=== PATIENT | male | born 1960 | race Caucasian/White ===

== ENCOUNTER → 2018-09-30 | Outpatient (REF) | payer BC ==
[2018-09-30 19:31] LABS: BLOOD UREA NITROGEN 20 MG/DL (7-18); CALCIUM LEVEL 8.5 MG/DL (8.5-10.1); CARBON DIOXIDE LEVEL 30 MEQ/L (21-32); CHLORIDE LEVEL 99 MEQ/L (98-107); CREATININE FOR GFR 0.99 MG/DL (0.70-1.30); GLOMERULAR FILTRATION RATE > 60.0 (>56); GLUCOSE, FASTING 211 MG/DL (70-100); POTASSIUM SERUM 3.6 MEQ/L (3.5-5.1); SODIUM LEVEL 137 MEQ/L (136-145)
== END ==
LOC: M SFHCADAM 16:17
PROVIDERS: ATTEND Family Medicine
DX: E11.65 Type 2 diabetes mellitus with hyperglycemia (principal); I11.9 Hypertensive heart disease without heart failure

== ENCOUNTER → 2019-03-31 | Outpatient (REF) | payer BC ==
[2019-03-31 20:19] LABS: CREATININE, URINE 25.1 MG/DL; MALB URINE SIEMENS < 5.0 MG/L; MAU/CREAT RATIO 19.9 MCG/MG (0.0-30.0)
[2019-03-31 20:21] LABS: HEMOGLOBIN A1c 8.3 %
== END ==
LOC: M SFHCADAM 17:25
PROVIDERS: ATTEND Family Medicine
DX: E11.65 Type 2 diabetes mellitus with hyperglycemia (principal)

== ENCOUNTER 2020-09-29 13:19 | Emergency (ER) | payer BC ==
[~2020-09-29] VITALS: Ht 182.9 cm; Wt 115.8 kg
--- OUTSIDE RECORDS SUMMARY | 2020-09-29 13:25 | CCD ---
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 Role Phone Robbysandrinebam Kristian Unavailable PROBLEMS Type Condition ICD9-CM Code [id number] Code Onset Dates Condition S tatus SNOMED Code Notes Problem Hyperlipidemia, unspecified E78.5 Active 5582 2004 Problem Vitamin D deficiency, unspecified E55.9 Active 71360014 Problem Type 2 diabetes mellitus with hyperglycemia E11.65 Active 299625776137201 Problem Obstructive sleep apnea (adult) (pediatric) G47.33 Active 38626737 Problem Atherosclerotic heart diseas e of [place] coronary artery without angina pectoris I25.10 Active 431104443574992 Problem Major depressive disorder, single episode, unspecified F32.9 Active 05351672 Problem Hypertensive heart disease without heart failure I 11.9 Active 63248411 Problem Generalized anxiety disorder F41.1 Active 218 91819 Problem Encounter for screening for malignant neoplasm of prostate Z12.5 Active 214221858 Problem Primary generalized (osteo)arthritis M15.0 Act leilani 712461769 Problem Gastro-esophageal reflux disease without esophagitis K21.9 Active 021065142 Problem Chronic systolic (congestive) heart failure I50.22 Active 025574028 ALLERGIES Allergen (clinical drug ingredient) Drug/Non Drug Allergy do cumented on EMR Reaction Allergy Type Onset Date Status bee stings Unknown Non Drug Allergy Active ENCOUNTERS from 1960 to 2020-09-25 Encounter Location Date Provider Diagnosis [facility] [place] [address] [place] [id number] 11 Sep, 2020 [place] At increased risk of exposure to COVID-19 virus Z91.89 IMMUNIZATIONS Vaccine Route Administration Date Status Pneumococcal Adult 0.5mL (Pneumovax 23) IM Intramuscular March Administered Influenza (6mo & up) Fluzone IM Intramuscular Sep 24, 2017 Ad ministered Influenza (6mo & up) Fluzone IM Intramuscular Jul 20, 2014 Ad ministered Influenza (6mo & up) Fluzone IM Intramuscular Jul 11, 2010 Ad ministered SOCIAL HISTORY Tobacco Use: Social History Observation Description Date Details (start date - stop date) Never Smoker Sex Assigned At : Social History Observation Description Sex Assigned At Unknown Audit Question Answer Notes Total Score: 2 Interpretation: Alcohol Education Language: Question Answer Notes Languages spoken: German Sexual Hx: Question Answer Notes Had sex in the last 12 months (vaginal, oral, or anal)? No Have you ever had an STD? No Drug and Alcohol Question Answer Notes Total Score: 0 Interpretation: No problems reported Alcohol Screening: Question Answer Notes Did you have a drink containing alcohol in the past year? Ye s Points 1 Interpretation Negative How often did you have six or more drinks on one occas ion in the past year? Never (0 points) How many drinks did you have on a typica l day when you were drinking in the past year? 1 or 2 (0 points) How often did you have a drink containing alcohol in t he past year? Monthly or less (1 point) BMI Care Goal Follow-Up Question Answer Notes Above Normal BMI Follow-Up Lifestyle education regarding t Tobacco Use: Question Answer Notes Are you a: never smoker REASON FOR REFERRAL No Information VITAL SIGNS No information MEDICATIONS Medication SIG (Take, Route, Frequency, Duration) Notes Start Da te End Date Status Loprox 0.77 % 1 application Externally Twice a day for 30 Days Nov, Active Selenium Sulfide 2.25 % 1 application Externally Daily for 7 day(s) Active Vitamin D 5000 UNIT 1 tablet Orally Once a day Aug, 3 Not-Taking CPAP mask as directed CPAP mask, tubin g, reservoir, filters Dx: HIEN for 99 months Dec, Unknown Coreg 12.5 MG TAKE ONE TABLET BY MOUTH TWI CE A DAY Orally Twice a day for 30 days Active EpiPen 0.3 MG/0.3ML (1:1000) as directed Intramuscular as needed for bee stings for 90 days Mar, Active Lipitor 80 MG 1 tablet Orally Once a day for 90 Active Hydrocortisone 2.5 % 1 application to affected ar ea Externally twice daily as needed for 30 day(s) Mar, Active Lantus SoloStar 100 UNIT/ML 100 units Subcutaneous every night Active Pen Reed 31G X 6 MM as directed SQ twice a day for 90 day(s) Nov, Active Pantoprazole Sodium 40 MG TAKE ONE TABLET BY MOUTH EVERY DAY for 30 Active Lancets lancets lancets ICD:250.02 NIDDM FSBS twice daily for 90 day(s) Jul, Active Aspirin 325 MG 1 tablet Orally Once a day Active Remeron 30 mg 1 tab(s) Orally bedtime for 90 Active Mometasone Furoate 0.1 % 1 application Externally Once a day for 30 Days Oct, Active Nitroglycerin 0.4 MG/SPRAY 1 puff under the tongue Tra nslingual chest pain directions for 30 day(s) Active Jardiance 25 mg TAKE ONE TABLET BY MOUTH FERNY RY DAY Orally Once a day for 90 days Active FreeStyle Lite Test `` 1 each In Vitro DX. E11.65 twice a day fo r 90 day(s) January, Active Plavix 75 MG TAKE ONE TABLET BY MOUTH EVERY DAY for 30 Active Alprazolam 0.25 MG 1 tablet Orally Twice a day MDD:2 for 30 Not-Taking Metformin HCl 1000 mg with meals Orally 1& 1/2 in AM//1 in PM for 30 Active Losartan Potassium 50 MG TAKE ONE TABLET BY MOUTH EVERY DAY for 30 Active Ranexa 500 mg 1 tablet Orally Twice a day for 30 Active Multivitamins 1 tablet Orally daily Not-Taking Lantus solo star pen needles _ as directed _ as directed for 30 day(s) Jul, Active Glucose Blood test strips ICD:250.02 NIDDM FSBS twice daily for 90 day(s) Jul, Active Chlorthalidone 25 MG TAKE ONE TABLET BY MOUTH EVERY DAY for 30 Active PROCEDURES No Information RESULTS No Results REASON FOR VISIT COVID MEDICAL (GENERAL) HISTORY Type Description Date Medical History [place] Anterolateral 08/22, STEM I s/p thrombolytic and rescue angioplasty w/out stenting Medical History CAD PTCA/Stent 02/18 (Diagonal branch) Medical History Cath 08/22 ([facility]) LAD 60 %, L circumflex 100% stenosis, prior stent placed in diagnonal is occluded,prior stent placed in mid distal CX is patent RCA 100% stenosis, s/p rescue PTCA diagonal stent thrombosis Medical History type II diabetes with neuropathy Medical History Esophageal reflux Medical History Depression Medical History Echo 11/21 EF = 40 - 45% Medical History Nuclear Stress test 10/24 - i nfarction Ant lat wall, ischemia in antlat and inflat [place] 03/2011 previous [place], no ischemia EF 36%; mNST 12/27: fixed anterolat/anterapical defect, no reversibility, EF 36% Medical History HIEN s/p UPPP on BIPAP Medical History HTN Medical History Hyperlipidemia Medical History Obesity Medical History Ischemic cardiomyopathy Medical History Metabolic Syndrome Medical History Allergic Rhinitis Medical History Vit d defic Surgical History UPPP Surgical History (never had colonoscopy. was scheduled 08/22, had [place] when Plavix was held for procedure, never done). 08/22 Goals Section No Information Health Concerns No Information MEDICAL EQUIPMENT No Information MENTAL STATUS No Information FUNCTIONAL STATUS No Information ASSESSMENTS Encounter Date Diagnosis Assessment Notes Treatment Notes Treatm ent Clinical Notes Sep, At increased risk of exposure to COVID-1 9 virus (ICD-10 - Z91.89) PLAN OF TREATMENT Medication Medication Name Sig Start Date Stop Date Metformin HCl 1000 mg with meals Orally 1& 1/2 in AM//1 in PM fo r 30 Ranexa 500 mg 1 tablet Orally Twice a day for 30 Selenium Sulfide 2.25 % 1 application Externally Daily for 7 day (s) Treatment Notes Test Name Order Date Coronavirus 2019 Nasopharygeal (Send Out) COVID 09-25 Coronavirus 2019 NOSE (Send Out) COVID 2020-09-25 Next Appt Details Provider Name:Kristian Maldonado, 2020-10 03:45:00 PM, [address], [place], [address], Insurance Providers Payer Name Payer Address Payer Phone Insured Name Patient Relati onship to Insured Coverage Start Date Coverage End Date BCBS LORI DOMINGUEZ PPO [phone] [facility] [place] [id number] ERICA GREER self
--- OUTSIDE RECORDS SUMMARY | 2020-09-29 13:26 | CCD ---
Author Author [facility] Organization [facility] Address Unknown Phone Unavailable Care Team Providers Care Supervisor Enrobing Name Role Phone Rachid Winchester MD, FAC Unavailable Unavailable GabRachid ba MD, [facility] Unavailable Unavailable GabRachid ba MD, [facility] Unavailable Unavailable GabrisRachid MD, [facility] Unavailable Unavailable GabRachid ba MD, [facility] Unavailable Unavailable GabRachid ba MD, [facility] Unavailable Unavailable GabRachid ba MD, [facility] Unavailable Unavailable GabRachid ba MD, [facility] Unavailable Unavailable GabRachid ba MD, [facility] Unavailable Unavailable GabRachid ba MD, [facility] Unavailable Unavailable GabRachid ba MD, [facility] Unavailable Unavailable GabrisRachid MD, [facility] Unavailable Unavailable GabRachid ba MD, [facility] Unavailable Unavailable GabRachid ba MD, [facility] Unavailable Unavailable GabRachid ba MD, [facility] Unavailable Unavailable GabRachid ba MD, [facility] Unavailable Unavailable GabrisRachid MD, [facility] Unavailable Unavailable Gabris, Rachid Bruner MD, [facility] Unavailable Unavailable Gabris, Rachid Bruner MD, [facility] Unavailable Unavailable Gabris, Rachid Bruner MD, [facility] Unavailable Unavailable Gabris, Rachid Bruner MD, [facility] Unavailable Unavailable Gabris, Rachid Bruner MD, [facility] Unavailable Unavailable Gabris, Rachid Bruner MD, [facility] Unavailable Unavailable Gabris, Rachid Bruner MD, [facility] Unavailable Unavailable Gabris, Rachid Bruner MD, [facility] Unavailable Unavailable Gabris, Rachid Bruner MD, [facility] Unavailable Unavailable Gabris, Rachid Bruner MD, [facility] Unavailable Unavailable Gabris, Rachid Bruner MD, [facility] Unavailable Unavailable Gabris, Rachid Bruner MD, [facility] Unavailable Unavailable Gabris, Rachid Bruner MD, [facility] Unavailable Unavailable Gabris, Rachid Bruner MD, [facility] Unavailable Unavailable Gabris, Rachid Bruner MD, [facility] Unavailable Unavailable Gabris, Rachid Bruner MD, [facility] Unavailable Unavailable Gabris, Rachid Bruner MD, [facility] Unavailable Unavailable Gabris, Rachid Bruner MD, [facility] Unavailable Unavailable Gabris, Rachid Bruner MD, [facility] Unavailable Unavailable Gabris, Rachid Bruner MD, [facility] Unavailable Unavailable Gabris, Rachid Bruner MD, [facility] Unavailable Unavailable Gabris, Rachid Bruner MD, [facility] Unavailable Unavailable Gabris, Rachid Bruner MD, [facility] Unavailable Unavailable Gabris, Rachid Bruner MD, [facility] Unavailable Unavailable Gabris, Rachid Bruner MD, [facility] Unavailable Unavailable Gabris, Rachid Bruner MD, [facility] Unavailable Unavailable Gabris, Rachid Bruner MD, [facility] Unavailable Unavailable Gabris, Rachid Bruner MD, [facility] Unavailable Unavailable Gabris, Rachid Bruner MD, [facility] Unavailable Unavailable Gabris, Rachid Bruner MD, [facility] Unavailable Unavailable Gabris, Rachid Bruner MD, [facility] Unavailable Unavailable Gabris, Rachid Bruner MD, [facility] Unavailable Unavailable Gabris, Rachid Bruner MD, [facility] Unavailable Unavailable Gabris, Rachid Bruner MD, [facility] Unavailable Unavailable Gabris, Rachid Bruner MD, [facility] Unavailable Unavailable Gabris, Rachid Bruner MD, [facility] Unavailable Unavailable Gabris, Rachid Bruner MD, [facility] Unavailable Unavailable Gabris, Rachid Bruner MD, [facility] Unavailable Unavailable Gabris, Rachid Bruner MD, [facility] Unavailable Unavailable Gabris, Rachid Bruner MD, [facility] Unavailable Unavailable Gabris, Rachid Bruner MD, [facility] Unavailable Unavailable Gabris, Rachid Bruner MD, [facility] Unavailable Unavailable Gabris, Rachid Bruner MD, [facility] Unavailable Unavailable Gabris, Rachid Bruner MD, [facility] Unavailable Unavailable Gabris, Rachid Bruner MD, [facility] Unavailable Unavailable Gabris, Rachid Bruner MD, FACC Unavailable Unavailable Gabris, Rachid Bruner MD, FACC Unavailable Unavailable Gabris, Rachid Bruner MD, FAC Unavailable Unavailable Gabris, Rachid Bruner MD, FAC Unavailable Unavailable Gabris, Rachid Bruner MD, FAC Unavailable Unavailable Rolince, Christina RN Unavailable Unavailable Rolince, Christina RN Unavailable Unavailable Rolince, Christina RN Unavailable Unavailable Rolince Christina RN Unavailable Unavailable Rolince, Christina RN Unavailable Unavailable Rolince, Christina RN Unavailable Unavailable Rolince, Christina RN Unavailable Unavailable Rolince, Christina RN Unavailable Unavailable Rolince, Christina RN Unavailable Unavailable Rolince, Christina RN Unavailable Unavailable Rolince Christina RN Unavailable Unavailable Rolince Christina RN Unavailable Unavailable Rolince Christina RN Unavailable Unavailable Rolince Christina RN Unavailable Unavailable RolinceErmelindaChristina RN Unavailable Unavailable Rolince Christina RN Unavailable Unavailable PaolaeErmelinda RN Unavailable Unavailable WetterKristian kuhn MD Unavailable Unavailable WetterhahnKristian MD Unavailable Unavailable WetterhahnKristian MD Unavailable Unavailable WetterhahnKristian MD Unavailable Unavailable WetterhahnKristian MD Unavailable Unavailable WetterhahnKristian MD Unavailable Unavailable WetterhahnKristian MD Unavailable Unavailable WetterhahnKristian MD Unavailable Unavailable WetterhahnKristian MD Unavailable Unavailable WetterhahnKristian MD Unavailable Unavailable WetterhahnKristian MD Unavailable Unavailable WetterhahnKristian MD Unavailable Unavailable WetterhahnKristian MD Unavailable Unavailable WetterhaKristian arredondo MD Unavailable Unavailable WetterhahnKristian MD Unavailable Unavailable WetterhahnKristian MD Unavailable Unavailable WetterhahnKristian MD Unavailable Unavailable WetterhahnKristian MD Unavailable Unavailable WetterhahnKristian MD Unavailable Unavailable WetterhahnKristian MD Unavailable Unavailable WetterhahnKristian MD Unavailable Unavailable WetterhahnKristian MD Unavailable Unavailable WetterhahnKristian MD Unavailable Unavailable WetterhahnKristian MD Unavailable Unavailable WetterhahnKristian MD Unavailable Unavailable WetterhahnKristian MD Unavailable Unavailable WetterhahnKristian MD Unavailable Unavailable WetterhahnKristian MD Unavailable Unavailable WetterhahnKristian MD Unavailable Unavailable WetterhahnKristian MD Unavailable Unavailable WetterhahnKristian MD Unavailable Unavailable WetterhahnKristian MD Unavailable Unavailable WetterhahnKristian MD Unavailable Unavailable Wetterhahn, Kristian MARADIAGA Unavailable Unavailable Wetterhahn, Kristian MARADIAGA Unavailable Unavailable Wetterhahn, Kristian MARADIAGA Unavailable Unavailable Wetterhahn, Kristian MARADIAGA Unavailable Unavailable Wetterhahn, Kristian MARADIAGA Unavailable Unavailable Wetterhahn, Kristian MD Unavailable Unavailable Wetterhahn, Kristian MD Unavailable Unavailable Wetterhahn, Kristian MD Unavailable Unavailable Wetterhahn, Kristian MARADIAGA Unavailable Unavailable Wetterhahn, Kristian MD Unavailable Unavailable Wetterhahn, Kristian MARADIAGA Unavailable Unavailable Wetterhahn, Kristian MARADIAGA Unavailable Unavailable Wetterhahn, Kristian MD Unavailable Unavailable Wetterhahn, Kristian MD Unavailable Unavailable Wetterhahn, Kristian MD Unavailable Unavailable Wetterhahn, Kristian MD Unavailable Unavailable Wetterhahn, Kristian MD Unavailable Unavailable Wetterhahn, Kristian MARADIAGA Unavailable Unavailable Wetterhahn, Kristian MD Unavailable Unavailable Wetterhahn, Kristian MD Unavailable Unavailable Wetterhahn, Kristian MD Unavailable Unavailable Wetterhahn, Kristian MD Unavailable Unavailable Wetterhahn, Kristian MD Unavailable Unavailable Wetterhahn, Kristian MD Unavailable Unavailable Wetterhahn, Kristian MD Unavailable Unavailable Wetterhahn, Kristian MD Unavailable Unavailable Wetterhahn, Kristian MD Unavailable Unavailable Wetterhahn, Kristian MD Unavailable Unavailable Wetterhahn, Kristian MD Unavailable Unavailable Wetterhahn, Kristian MD Unavailable Unavailable Wetterhahn, Kristian MD Unavailable Unavailable Wetterhahn, Kristian MD Unavailable Unavailable Wetterhahn, Kristian MD Unavailable Unavailable Wetterhahn, Kristian MD Unavailable Unavailable Wetterhahn, Kristian MD Unavailable Unavailable Wetterhahn, Kristian MARADIAGA Unavailable Unavailable Wetterhahn, Kristian MARADIAGA Unavailable Unavailable Wetterhahn, Kristian MARADIAGA Unavailable Unavailable Re-disclosure Warning The records that you are about to access may contain information from federally-assisted alcohol or drug abuse programs. If such information is present, then the following federally mandated warning applies: This information has been disclosed to you from records protected by federal confidentiality rules (42 CFR part 2). The federal rules prohibit you from making any further disclosure of this information unless further disclosure is expressly permitted by the written consent of the person to whom it pertains or as otherwise permitted by 42 CFR part 2. A general authorization for the release of medical or other information is NOT sufficient for this purpose. The Federal rules restrict any use of the information to criminally investigate or prosecute any alcohol or drug abuse patient.The records that you are about to access may contain highly sensitive health information, the redisclosure of which is protected by Article 27-F of the [facility] Public Health law. If you continue you may have access to information: Regarding HIV / AIDS; Provided by facilities licensed or operated by the [facility] Office of Mental Health; or Provided by the [facility] Office for People With Developmental Disabilities. If such information is present, then the following [facility] mandated warning applies: This information has been disclosed to you from confidential records which are protected by state law. State law prohibits you from making any further disclosure of this information without the specific written consent of the person to whom it pertains, or as otherwise permitted by law. Any unauthorized further disclosure in violation of state law may result in a fine or assisted sentence or both. A general authorization for the release of medical or other information is NOT sufficient authorization for further disc losure. Allergies and Adverse Reactions Type Description Substance Reaction Status Data Source(s ) bee stings bee stings bee stings Unknown Active eC1 ([facility]) Encounters Encounter Providers Location Date Indications Data Source(s ) Outpatient Attender: Kristian Okeefe MD 09/25/2020 01:51:00 PM EST covid screening referral symp and exposed [facility] covid screening referral symp and expose d Unknown [address] [facility] [id number] 09/25/2020 12:00:00 AM EST eCW1 ([facility]) TeleMedicine Est. Pt. Level 3 [address] [place] [address] 09/06/2020 12:00:00 AM EST eCW1 ([facility]) Unknown [address] [facility] [address] 08/30/2020 12:00:00 AM EST eCW1 ([facility]) Unknown [address] [facility] [id number] 08/16/2020 12:00:00 AM EST eCW1 ([facility]) Outpatient Attender: Ermelinda Chambers RNAttender: Franc Winchester MD, [facility] [email or web address] 06/30/2020 12:00:00 AM EDT - 06/30/2020 03:49:15 PM EDT [facility] [address] [place] [address] 05/03/2020 12:00:00 AM EDT [facility]CW1 [facility] [place] [address] [address] 04/07/2020 12:00:00 AM EDT eCW1 ([facility]) [place]patient [address] [address] 04/05/2020 12:00:00 AM EDT eCW1 ([facility]) Unknown [address] [facility] [place] [address] 03/27/2020 12:00:00 AM EDT eCW1 ([facility]) Unknown [address], [facility] [address] 02/23/2020 12:00:00 AM EDT eCW1 ([facility]) Outpatient Attender: Franc Winchester MD, [facility] [email or web address] 12/31/2019 12:00:00 AM EDT - 12/31/2019 03:13:18 PM EDT [facility] [address] [facility] [address] 12/15/2019 12:00:00 AM EDT eCW1 ([facility]) [facility] [address] [address] 12/13/2019 12:00:00 AM EDT eCW1 ([facility]) [facility] [place] [address] [address] 11/30/2019 12:00:00 AM EDT eCW1 ([facility]) [facility] [address] [address] 11/25/2019 12:00:00 AM EDT eCW1 ([facility]) [facility] [address] [facility] [address] 11/24/2019 12:00:00 AM EDT eCW1 ([facility]) [facility] D[facility] [address] [place] [address] 10/21/2019 12:00:00 AM EST eCW1 ([facility]) [facility] [address] [facility] [address] 10/21/2019 12:00:00 AM EST eCW1 ([facility]) [facility] [address] [place] [address], [place] [address] 10/20/2019 12:00:00 AM EST eCW1 ([facility]) [facility] [address] [place] [address] [place] [address] 10/20/2019 12:00:00 AM EST eCW1 ([facility]) [facility] [address] [place] [address] [place] [address] 10/05/2019 12:00:00 AM EST eCW1 ([facility]) [facility] [address] [place] [address], [place] [address] 09/13/2019 12:00:00 AM EST eCW1 ([facility]) [facility] [address] [place] [address], [place] [address] 08/23/2019 12:00:00 AM EST eCW1 ([facility]) Medications Medication Brand Name Start Date Product Form Dose Route Admi nistrative Instructions Pharmacy Instructions Status Indications Reaction Description Data Source(s) carvedilol 12.5 MG Oral Tablet CARVEDILOL 08/23/2020 12:00:00 AM EST tablet 60 TAKE ONE TABLET BY MOUTH TWICE A DAY TAKE ONE TABLET BY MOUT H TWICE A DAY SOLD: 08/27/2020 [facility] pantoprazole 40 MG Delayed Release Oral Tablet PANTOPRAZOLE SODIUM 08/16/2020 12:00:00 AM EST tablet,delayed release (DR/EC) 30 T SRINATH ONE TABLET BY MOUTH EVERY DAY TAKE ONE TABLET BY MOUTH EVERY DAY SOLD: 08/18/2020 [facility] 25 mg 08/16/2020 12:00:00 AM EST tablet 30 TAKE ONE TABLET BY MOUTH EVERY DAY TAKE ONE TABLET BY MOUTH EVERY DAY SOLD: 09/21/2020 [facility] pantoprazole 40 MG Delayed Release Oral Tablet PANTOPRAZOLE SODIUM 08/16/2020 12:00:00 AM EST tablet,delayed release (DR/EC) 30 T SRINATH ONE TABLET BY MOUTH EVERY DAY TAKE ONE TABLET BY MOUTH EVERY DAY SOLD: 09/14/2020 [facility] 25 mg 08/16/2020 12:00:00 AM EST tablet 30 TAKE ONE TABLET BY MOUTH EVERY DAY TAKE ONE TABLET BY MOUTH EVERY DAY SOLD: 08/18/2020 [facility] doxycycline hyclate 100 MG Oral Capsule DOXYCYCLINE HYCLATE 07/11/2020 12:00:00 AM EDT capsule 2 TAKE 2 CAPSULES BY MOUTH ONCE TAKE 2 CAPSULES BY MOUTH ONCE SOLD: 07/11/2020 [facility] 400 mcg/spray 06/30/2020 12:00:00 AM EDT spray,non-aerosol 1 2 SPRAY 1 SPRAY UNDER THE TONGUE ONCE EVERY 5 MINUTES FOR 3 DOSES FOR CHEST PAIN SPRAY 1 SPRAY UNDER THE TONGUE ONCE EVERY 5 MINUTES FOR 3 DOSES FOR CHEST PAIN SOLD: 07/06/2020 [facility] 50 mg 06/20/2020 12:00:00 AM EDT tablet 30 TAKE ONE TABLET BY MOUTH EVERY DAY TAKE ONE TABLET BY MOUTH EVERY DAY SOLD: 06/22/2020 [facility] 50 mg 06/20/2020 12:00:00 AM EDT tablet 30 TAKE ONE TABLET BY MOUTH EVERY DAY TAKE ONE TABLET BY MOUTH EVERY DAY SOLD: 08/27/2020 [facility] 50 mg 06/20/2020 12:00:00 AM EDT tablet 30 TAKE ONE TABLET BY MOUTH EVERY DAY TAKE ONE TABLET BY MOUTH EVERY DAY SOLD: 09/21/2020 [facility] 50 mg 06/20/2020 12:00:00 AM EDT tablet 30 TAKE ONE TABLET BY MOUTH EVERY DAY TAKE ONE TABLET BY MOUTH EVERY DAY SOLD: 07/30/2020 [facility] 75 mg 05/24/2020 12:00:00 AM EDT tablet 30 TAKE ONE TABLET BY MOUTH EVERY DAY TAKE ONE TABLET BY MOUTH EVERY DAY SOLD: 09/21/2020 [facility] 75 mg 05/24/2020 12:00:00 AM EDT tablet 30 TAKE ONE TABLET BY MOUTH EVERY DAY TAKE ONE TABLET BY MOUTH EVERY DAY SOLD: 08/18/2020 [facility] 75 mg 05/24/2020 12:00:00 AM EDT tablet 30 TAKE ONE TABLET BY MOUTH EVERY DAY TAKE ONE TABLET BY MOUTH EVERY DAY SOLD: 07/23/2020 [facility] 75 mg 05/24/2020 12:00:00 AM EDT tablet 30 TAKE ONE TABLET BY MOUTH EVERY DAY TAKE ONE TABLET BY MOUTH EVERY DAY SOLD: 06/22/2020 [facility] 75 mg 05/24/2020 12:00:00 AM EDT tablet 30 TAKE ONE TABLET BY MOUTH EVERY DAY TAKE ONE TABLET BY MOUTH EVERY DAY SOLD: 05/26/2020 [facility] Metformin hydrochloride 1000 MG Oral Tablet 1,000 mg METFORM IN HCL 05/19/2020 12:00:00 AM EDT tablet 75 TAKE 1 & 1/2 TAB LETS BY MOUTH EVERY MORNING AND 1 TABLET EVERY EVENING TAKE 1 & 1/2 TABLETS BY MOUTH EVERY MORN ING AND 1 TABLET EVERY EVENING SOLD: 09/21/2020 [facility] Metformin hydrochloride 1000 MG Oral Tablet 1,000 mg METFORM IN HCL 05/19/2020 12:00:00 AM EDT tablet 75 TAKE 1 & 1/2 TAB LETS BY MOUTH EVERY MORNING AND 1 TABLET EVERY EVENING TAKE 1 & 1/2 TABLETS BY MOUTH EVERY MORN ING AND 1 TABLET EVERY EVENING SOLD: 08/18/2020 [facility] Metformin hydrochloride 1000 MG Oral Tablet 1,000 mg METFORM IN HCL 05/19/2020 12:00:00 AM EDT tablet 75 TAKE 1 & 1/2 TAB LETS BY MOUTH EVERY MORNING AND 1 TABLET EVERY EVENING TAKE 1 & 1/2 TABLETS BY MOUTH EVERY MORN ING AND 1 TABLET EVERY EVENING SOLD: 06/22/2020 [facility] Metformin hydrochloride 1000 MG Oral Tablet 1,000 mg METFORM IN HCL 05/19/2020 12:00:00 AM EDT tablet 75 TAKE 1 & 1/2 TAB LETS BY MOUTH EVERY MORNING AND 1 TABLET EVERY EVENING TAKE 1 & 1/2 TABLETS BY MOUTH EVERY MORN ING AND 1 TABLET EVERY EVENING SOLD: 07/23/2020 [facility] Metformin hydrochloride 1000 MG Oral Tablet 1,000 mg METFORM IN HCL 05/19/2020 12:00:00 AM EDT tablet 75 TAKE 1 & 1/2 TAB LETS BY MOUTH EVERY MORNING AND 1 TABLET EVERY EVENING TAKE 1 & 1/2 TABLETS BY MOUTH EVERY MORN ING AND 1 TABLET EVERY EVENING SOLD: 05/23/2020 [facility] 30 mg 05/03/2020 12:00:00 AM EDT tablet 90 TAKE ONE TABLET BY MOUTH AT BEDTIME TAKE ONE TABLET BY MOUTH AT BEDTIME SOLD: 05/04/2020 [facility] 30 mg 05/03/2020 12:00:00 AM EDT tablet 90 TAKE ONE TABLET BY MOUTH AT BEDTIME TAKE ONE TABLET BY MOUTH AT BEDTIME SOLD: 07/30/2020 [facility] 100 unit/mL (3 mL) 04/21/2020 12:00:00 AM EDT insulin pen 45 INJECT 100 UNITS UNDER THE SKIN EVERY NIGHT INJECT 100 UNITS UNDER THE SKIN EVERY NIGHT SOLD: 06/15/2020 [facility] 100 unit/mL (3 mL) 04/21/2020 12:00:00 AM EDT insulin pen 45 INJECT 100 UNITS UNDER THE SKIN EVERY NIGHT INJECT 100 UNITS UNDER THE SKIN EVERY NIGHT SOLD: 08/11/2020 [facility] 100 unit/mL (3 mL) 04/21/2020 12:00:00 AM EDT insulin pen 45 INJECT 100 UNITS UNDER THE SKIN EVERY NIGHT INJECT 100 UNITS UNDER THE SKIN EVERY NIGHT SOLD: 04/21/2020 [facility] Alprazolam 0.25 MG Oral Tablet ALPRAZOLAM 04/07/2020 12:00:00 AM EDT tablet 60 TAKE ONE TABLET BY MOUTH TWICE A DAY MAXIMUM DAILY DOS E = 2 TAKE ONE TABLET BY MOUTH TWICE A DAY MAXIMUM DAILY DOSE = 2 SOLD: 04/11/2020 [facility] 500 mg 04/06/2020 12:00:00 AM EDT tablet extended release 12 hr 60 TAKE ONE TABLET BY MOUTH TWICE A DAY TAKE ONE TABLET BY MOUTH TWICE A DAY SOLD: 06/29/2020 [facility] 500 mg 04/06/2020 12:00:00 AM EDT tablet extended release 12 hr 60 TAKE ONE TABLET BY MOUTH TWICE A DAY TAKE ONE TABLET BY MOUTH TWICE A DAY SOLD: 08/06/2020 [facility] 500 mg 04/06/2020 12:00:00 AM EDT tablet extended release 12 hr 60 TAKE ONE TABLET BY MOUTH TWICE A DAY TAKE ONE TABLET BY MOUTH TWICE A DAY SOLD: 08/31/2020 [facility] 500 mg 04/06/2020 12:00:00 AM EDT tablet extended release 12 hr 60 TAKE ONE TABLET BY MOUTH TWICE A DAY TAKE ONE TABLET BY MOUTH TWICE A DAY SOLD: 04/06/2020 [facility] 500 mg 04/06/2020 12:00:00 AM EDT tablet extended release 12 hr 60 TAKE ONE TABLET BY MOUTH TWICE A DAY TAKE ONE TABLET BY MOUTH TWICE A DAY SOLD: 06/01/2020 [facility] 500 mg 04/06/2020 12:00:00 AM EDT tablet extended release 12 hr 60 TAKE ONE TABLET BY MOUTH TWICE A DAY TAKE ONE TABLET BY MOUTH TWICE A DAY SOLD: 05/04/2020 [facility] 2.25 % 04/05/2020 12:00:00 AM EDT shampoo 180 APPLY TO AFFECTED AREA(S) ONCE DAILY FOR 7 DAYS APPLY TO AFFECTED AREA(S) ONCE DAILY FOR 7 DAYS SOLD: 04/06/2020 [facility] selenium sulfide 22.5 MG/ML Medicated Shampoo Selenium Sulfide 2.25 % Selenium Sulfide 2.25 % 04/05/2020 12:00:00 AM EDT 1.0 {application} active Selenium Sulfide 2.25 % eCW1 ([facility]) selenium sulfide 22.5 MG/ML Medicated Shampoo Selenium Sulfide 2.25 % Selenium Sulfide 2.25 % 04/05/2020 12:00:00 AM EDT 1.0 {application} active Selenium Sulfide 2.25 % eCW1 ([facility]) selenium sulfide 22.5 MG/ML Medicated Shampoo Selenium Sulfide 2.25 % Selenium Sulfide 2.25 % 04/05/2020 12:00:00 AM EDT 1.0 {application} active Selenium Sulfide 2.25 % eCW1 ([facility]) selenium sulfide 22.5 MG/ML Medicated Shampoo Selenium Sulfide 2.25 % Selenium Sulfide 2.25 % 04/05/2020 12:00:00 AM EDT 1.0 {application} active Selenium Sulfide 2.25 % eCW1 ([facility]) 500 mg 03/22/2020 12:00:00 AM EDT capsule 21 TAKE ONE CAPSULE BY MOUTH EVERY 8 HOURS FOR 7 DAYS TAKE ONE CAPSULE BY MOUTH EVERY 8 HOURS FOR 7 DAYS [facility] 500 mg 03/13/2020 12:00:00 AM EDT capsule 21 TAKE ONE CAPSULE BY MOUTH EVERY 8 HOURS TAKE ONE CAPSULE BY MOUTH EVERY 8 HOURS SOLD: 03/14/2020 [facility] Alprazolam 0.25 MG Oral Tablet ALPRAZOLAM 02/24/2020 12:00:00 AM EDT tablet 60 TAKE ONE TABLET BY MOUTH TWICE A DAY MAXIMUM DAILY DOS E = 2 TAKE ONE TABLET BY MOUTH TWICE A DAY MAXIMUM DAILY DOSE = 2 SOLD: 02/24/2020 [facility] carvedilol 12.5 MG Oral Tablet CARVEDILOL 02/23/2020 12:00:00 AM EDT tablet 60 TAKE ONE TABLET BY MOUTH TWICE A DAY TAKE ONE TABLET BY MOUT H TWICE A DAY SOLD: 02/24/2020 [facility] carvedilol 12.5 MG Oral Tablet CARVEDILOL 02/23/2020 12:00:00 AM EDT tablet 60 TAKE ONE TABLET BY MOUTH TWICE A DAY TAKE ONE TABLET BY MOUT H TWICE A DAY SOLD: 04/27/2020 [facility] carvedilol 12.5 MG Oral Tablet CARVEDILOL 02/23/2020 12:00:00 AM EDT tablet 60 TAKE ONE TABLET BY MOUTH TWICE A DAY TAKE ONE TABLET BY MOUT H TWICE A DAY SOLD: 06/29/2020 [facility] carvedilol 12.5 MG Oral Tablet CARVEDILOL 02/23/2020 12:00:00 AM EDT tablet 60 TAKE ONE TABLET BY MOUTH TWICE A DAY TAKE ONE TABLET BY MOUT H TWICE A DAY SOLD: 03/28/2020 [facility] carvedilol 12.5 MG Oral Tablet CARVEDILOL 02/23/2020 12:00:00 AM EDT tablet 60 TAKE ONE TABLET BY MOUTH TWICE A DAY TAKE ONE TABLET BY MOUT H TWICE A DAY SOLD: 06/01/2020 [facility] carvedilol 12.5 MG Oral Tablet CARVEDILOL 02/23/2020 12:00:00 AM EDT tablet 60 TAKE ONE TABLET BY MOUTH TWICE A DAY TAKE ONE TABLET BY MOUT H TWICE A DAY SOLD: 07/30/2020 [facility] 25 mg 02/16/2020 12:00:00 AM EDT tablet 30 TAKE ONE TABLET BY MOUTH EVERY DAY TAKE ONE TABLET BY MOUTH EVERY DAY SOLD: 06/22/2020 [facility] 25 mg 02/16/2020 12:00:00 AM EDT tablet 30 TAKE ONE TABLET BY MOUTH EVERY DAY TAKE ONE TABLET BY MOUTH EVERY DAY SOLD: 04/13/2020 [facility] 25 mg 02/16/2020 12:00:00 AM EDT tablet 30 TAKE ONE TABLET BY MOUTH EVERY DAY TAKE ONE TABLET BY MOUTH EVERY DAY SOLD: 03/09/2020 [facility] pantoprazole 40 MG Delayed Release Oral Tablet PANTOPRAZOLE SODIUM 02/16/2020 12:00:00 AM EDT tablet,delayed release (DR/EC) 30 T SRINATH ONE TABLET BY MOUTH EVERY DAY TAKE ONE TABLET BY MOUTH EVERY DAY SOLD: 07/23/2020 [facility] 25 mg 02/16/2020 12:00:00 AM EDT tablet 30 TAKE ONE TABLET BY MOUTH EVERY DAY TAKE ONE TABLET BY MOUTH EVERY DAY SOLD: 02/17/2020 [facility] pantoprazole 40 MG Delayed Release Oral Tablet PANTOPRAZOLE SODIUM 02/16/2020 12:00:00 AM EDT tablet,delayed release (DR/EC) 30 T SRINATH ONE TABLET BY MOUTH EVERY DAY TAKE ONE TABLET BY MOUTH EVERY DAY SOLD: 03/23/2020 [facility] pantoprazole 40 MG Delayed Release Oral Tablet PANTOPRAZOLE SODIUM 02/16/2020 12:00:00 AM EDT tablet,delayed release (DR/EC) 30 T SRINATH ONE TABLET BY MOUTH EVERY DAY TAKE ONE TABLET BY MOUTH EVERY DAY SOLD: 05/23/2020 [facility] pantoprazole 40 MG Delayed Release Oral Tablet PANTOPRAZOLE SODIUM 02/16/2020 12:00:00 AM EDT tablet,delayed release (DR/EC) 30 T SRINATH ONE TABLET BY MOUTH EVERY DAY TAKE ONE TABLET BY MOUTH EVERY DAY SOLD: 04/21/2020 [facility] 25 mg 02/16/2020 12:00:00 AM EDT tablet 30 TAKE ONE TABLET BY MOUTH EVERY DAY TAKE ONE TABLET BY MOUTH EVERY DAY SOLD: 07/23/2020 [facility] pantoprazole 40 MG Delayed Release Oral Tablet PANTOPRAZOLE SODIUM 02/16/2020 12:00:00 AM EDT tablet,delayed release (DR/EC) 30 T SRINATH ONE TABLET BY MOUTH EVERY DAY TAKE ONE TABLET BY MOUTH EVERY DAY SOLD: 06/15/2020 [facility] 25 mg 02/16/2020 12:00:00 AM EDT tablet 30 TAKE ONE TABLET BY MOUTH EVERY DAY TAKE ONE TABLET BY MOUTH EVERY DAY SOLD: 05/26/2020 [facility] 40 mg 02/16/2020 12:00:00 AM EDT tablet,delayed release (DR/EC) 30 TAKE ONE TABLET BY MOUTH EVERY DAY TAKE ONE TABLET BY MOUTH EVERY DAY SOLD: 02/17/2020 [facility] atorvastatin 80 MG Oral Tablet ATORVASTATIN CALCIUM 02/15/2020 1 2:00:00 AM EDT tablet 90 TAKE ONE TABLET BY MOUTH EVERY D AY TAKE ONE TABLET BY MOUTH EVERY DAY SOLD: 05/23/2020 [facility] atorvastatin 80 MG Oral Tablet ATORVASTATIN CALCIUM 02/15/2020 1 2:00:00 AM EDT tablet 90 TAKE ONE TABLET BY MOUTH EVERY D AY TAKE ONE TABLET BY MOUTH EVERY DAY SOLD: 08/18/2020 [facility] atorvastatin 80 MG Oral Tablet ATORVASTATIN CALCIUM 02/15/2020 1 2:00:00 AM EDT tablet 90 TAKE ONE TABLET BY MOUTH EVERY D AY TAKE ONE TABLET BY MOUTH EVERY DAY SOLD: 02/17/2020 [facility] Alprazolam 0.25 MG Oral Tablet ALPRAZOLAM 01/26/2020 12:00:00 AM EDT tablet 60 TAKE ONE TABLET BY MOUTH TWICE A DAY MAXIMUM DAILY DOS E = 2 TAKE ONE TABLET BY MOUTH TWICE A DAY MAXIMUM DAILY DOSE = 2 SOLD: 01/28/2020 [facility] 25 mg 12/27/2019 12:00:00 AM EDT tablet 90 TAKE ONE TABLET BY MOUTH EVERY DAY TAKE ONE TABLET BY MOUTH EVERY DAY SOLD: 07/06/2020 [facility] 25 mg 12/27/2019 12:00:00 AM EDT tablet 90 TAKE ONE TABLET BY MOUTH EVERY DAY TAKE ONE TABLET BY MOUTH EVERY DAY SOLD: 03/30/2020 [facility] 25 mg 12/27/2019 12:00:00 AM EDT tablet 90 TAKE ONE TABLET BY MOUTH EVERY DAY TAKE ONE TABLET BY MOUTH EVERY DAY SOLD: 01/01/2020 [facility] 50 mg 12/16/2019 12:00:00 AM EDT tablet 30 TAKE ONE TABLET BY MOUTH EVERY DAY TAKE ONE TABLET BY MOUTH EVERY DAY SOLD: 12/17/2019 [facility] Alprazolam 0.25 MG Oral Tablet ALPRAZOLAM 12/16/2019 12:00:00 AM EDT tablet 60 TAKE ONE TABLET BY MOUTH TWICE A DAY MAXIMUM DAILY DOS E = 2 TAKE ONE TABLET BY MOUTH TWICE A DAY MAXIMUM DAILY DOSE = 2 SOLD: 12/17/2019 [facility] 50 mg 12/16/2019 12:00:00 AM EDT tablet 30 TAKE ONE TABLET BY MOUTH EVERY DAY TAKE ONE TABLET BY MOUTH EVERY DAY SOLD: 05/26/2020 [facility] 50 mg 12/16/2019 12:00:00 AM EDT tablet 30 TAKE ONE TABLET BY MOUTH EVERY DAY TAKE ONE TABLET BY MOUTH EVERY DAY SOLD: 02/24/2020 [facility] 50 mg 12/16/2019 12:00:00 AM EDT tablet 30 TAKE ONE TABLET BY MOUTH EVERY DAY TAKE ONE TABLET BY MOUTH EVERY DAY SOLD: 03/30/2020 [facility] 50 mg 12/16/2019 12:00:00 AM EDT tablet 30 TAKE ONE TABLET BY MOUTH EVERY DAY TAKE ONE TABLET BY MOUTH EVERY DAY SOLD: 04/27/2020 [facility] 50 mg 12/16/2019 12:00:00 AM EDT tablet 30 TAKE ONE TABLET BY MOUTH EVERY DAY TAKE ONE TABLET BY MOUTH EVERY DAY SOLD: 01/28/2020 [facility] 0.77 % 12/01/2019 12:00:00 AM EDT cream 30 APPLY TOPICALLY TWICE A DAY APPLY TOPICALLY TWICE A DAY SOLD: 01/28/2020 [facility] 0.77 % 12/01/2019 12:00:00 AM EDT cream 30 APPLY TOPICALLY TWICE A DAY APPLY TOPICALLY TWICE A DAY SOLD: 12/03/2019 [facility] ciclopirox 7.7 MG/ML Topical Cream [Loprox] Loprox 0.77 % Lo prox 0.77 % 11/26/2019 12:00:00 AM EDT 1.0 {application} active Loprox 0.77 % eCW1 ([facility]) ciclopirox 7.7 MG/ML Topical Cream [Loprox] Loprox 0.77 % Lo prox 0.77 % 11/26/2019 12:00:00 AM EDT 1.0 {application} active Loprox 0.77 % eCW1 ([facility]) ciclopirox 7.7 MG/ML Topical Cream [Loprox] Loprox 0.77 % Lo prox 0.77 % 11/26/2019 12:00:00 AM EDT active 1 application eCW1 ([facility]) ciclopirox 7.7 MG/ML Topical Cream [Loprox] Loprox 0.77 % Lo prox 0.77 % 11/26/2019 12:00:00 AM EDT active 1 application eCW1 ([facility]) ciclopirox 7.7 MG/ML Topical Cream [Loprox] Loprox 0.77 % Lo prox 0.77 % 11/26/2019 12:00:00 AM EDT 1.0 {application} active Loprox 0.77 % eCW1 ([facility]) ciclopirox 7.7 MG/ML Topical Cream [Loprox] Loprox 0.77 % Lo prox 0.77 % 11/26/2019 12:00:00 AM EDT 1.0 {application} active Loprox 0.77 % eCW1 ([facility]) ciclopirox 7.7 MG/ML Topical Cream [Loprox] Loprox 0.77 % Lo prox 0.77 % 11/26/2019 12:00:00 AM EDT 1.0 {application} active Loprox 0.77 % eCW1 ([facility]) ciclopirox 7.7 MG/ML Topical Cream [Loprox] Loprox 0.77 % Lo prox 0.77 % 11/26/2019 12:00:00 AM EDT 1.0 {application} active Loprox 0.77 % eCW1 ([facility]) ciclopirox 7.7 MG/ML Topical Cream [Loprox] Loprox 0.77 % Lo prox 0.77 % 11/26/2019 12:00:00 AM EDT 1.0 {application} active Loprox 0.77 % eCW1 ([facility]) ciclopirox 7.7 MG/ML Topical Cream [Loprox] Loprox 0.77 % Lo prox 0.77 % 11/26/2019 12:00:00 AM EDT 1.0 {application} active Loprox 0.77 % eCW1 ([facility]) Alprazolam 0.25 MG Oral Tablet ALPRAZOLAM 11/25/2019 12:00:00 AM EDT tablet 60 TAKE ONE TABLET BY MOUTH TWICE A DAY MAXIMUM DAILY DOS E = 2 TAKE ONE TABLET BY MOUTH TWICE A DAY MAXIMUM DAILY DOSE = 2 SOLD: 11/27/2019 [facility] Metformin hydrochloride 1000 MG Oral Tablet 1,000 mg METFORM IN HCL 11/15/2019 12:00:00 AM EST tablet 75 TAKE 1 & 1/2 TAB LETS IN THE MORNING AND 1 TABLET IN THE EVENING - TAKE WITH MEALS TAKE 1 & 1/2 TABLETS IN THE MORNING AND 1 TABLET IN THE EVENING - TAKE WITH MEALS SOLD: 04/21/2020 [facility] 1,000 mg 11/15/2019 12:00:00 AM EST tablet 75 TAKE 1 & 1/2 TABLETS IN THE MORNING AND 1 TABLET IN THE EVENING - TAKE WITH MEALS TAKE 1 & 1/2 TABLETS IN THE MORNING AND 1 TABLET IN THE EVENING - TAKE WITH MEALS SOLD: 02/17/2020 [facility] 1,000 mg 11/15/2019 12:00:00 AM EST tablet 75 TAKE 1 & 1/2 TABLETS IN THE MORNING AND 1 TABLET IN THE EVENING - TAKE WITH MEALS TAKE 1 & 1/2 TABLETS IN THE MORNING AND 1 TABLET IN THE EVENING - TAKE WITH MEALS SOLD: 01/22/2020 [facility] 1,000 mg 11/15/2019 12:00:00 AM EST tablet 75 TAKE 1 & 1/2 TABLETS IN THE MORNING AND 1 TABLET IN THE EVENING - TAKE WITH MEALS TAKE 1 & 1/2 TABLETS IN THE MORNING AND 1 TABLET IN THE EVENING - TAKE WITH MEALS SOLD: 03/23/2020 [facility] 1,000 mg 11/15/2019 12:00:00 AM EST tablet 75 TAKE 1 & 1/2 TABLETS IN THE MORNING AND 1 TABLET IN THE EVENING - TAKE WITH MEALS TAKE 1 & 1/2 TABLETS IN THE MORNING AND 1 TABLET IN THE EVENING - TAKE WITH MEALS SOLD: 12/20/2019 [facility] 1,000 mg 11/15/2019 12:00:00 AM EST tablet 75 TAKE 1 & 1/2 TABLETS IN THE MORNING AND 1 TABLET IN THE EVENING - TAKE WITH MEALS TAKE 1 & 1/2 TABLETS IN THE MORNING AND 1 TABLET IN THE EVENING - TAKE WITH MEALS SOLD: 11/16/2019 [facility] 100 unit/mL (3 mL) 11/11/2019 12:00:00 AM EST insulin pen 30 INJECT 100 UNITS UNDER THE SKIN EVERY NIGHT INJECT 100 UNITS UNDER THE SKIN EVERY NIGHT SOLD: 12/17/2019 [facility] 100 unit/mL (3 mL) 11/11/2019 12:00:00 AM EST insulin pen 30 INJECT 100 UNITS UNDER THE SKIN EVERY NIGHT INJECT 100 UNITS UNDER THE SKIN EVERY NIGHT SOLD: 11/12/2019 [facility] 100 unit/mL (3 mL) 11/11/2019 12:00:00 AM EST insulin pen 30 INJECT 100 UNITS UNDER THE SKIN EVERY NIGHT INJECT 100 UNITS UNDER THE SKIN EVERY NIGHT SOLD: 02/24/2020 [facility] 100 unit/mL (3 mL) 11/11/2019 12:00:00 AM EST insulin pen 30 INJECT 100 UNITS UNDER THE SKIN EVERY NIGHT INJECT 100 UNITS UNDER THE SKIN EVERY NIGHT SOLD: 02/01/2020 [facility] 75 mg 11/10/2019 12:00:00 AM EST tablet 30 TAKE ONE TABLET BY MOUTH EVERY DAY TAKE ONE TABLET BY MOUTH EVERY DAY SOLD: 01/13/2020 [facility] 75 mg 11/10/2019 12:00:00 AM EST tablet 30 TAKE ONE TABLET BY MOUTH EVERY DAY TAKE ONE TABLET BY MOUTH EVERY DAY SOLD: 02/17/2020 [facility] 75 mg 11/10/2019 12:00:00 AM EST tablet 30 TAKE ONE TABLET BY MOUTH EVERY DAY TAKE ONE TABLET BY MOUTH EVERY DAY SOLD: 04/21/2020 [facility] 75 mg 11/10/2019 12:00:00 AM EST tablet 30 TAKE ONE TABLET BY MOUTH EVERY DAY TAKE ONE TABLET BY MOUTH EVERY DAY SOLD: 12/17/2019 [facility] 75 mg 11/10/2019 12:00:00 AM EST tablet 30 TAKE ONE TABLET BY MOUTH EVERY DAY TAKE ONE TABLET BY MOUTH EVERY DAY SOLD: 11/12/2019 [facility] 75 mg 11/10/2019 12:00:00 AM EST tablet 30 TAKE ONE TABLET BY MOUTH EVERY DAY TAKE ONE TABLET BY MOUTH EVERY DAY SOLD: 03/23/2020 [facility] 400 mcg/spray 11/01/2019 12:00:00 AM EST spray,non-aerosol 1 2 USE 1 SPRAY UNDER THE TONGUE ONCE EVERY 5 MINUTES FOLR 3 DOSES FOR CHEST PAIN USE 1 SPRAY UNDER THE TONGUE ONCE EVERY 5 MINUTES FOLR 3 DOSES FOR CHEST PAIN SOLD: 11/03/2019 [facility] 400 mcg/spray 11/01/2019 12:00:00 AM EST spray,non-aerosol 1 2 USE 1 SPRAY UNDER THE TONGUE ONCE EVERY 5 MINUTES FOLR 3 DOSES FOR CHEST PAIN USE 1 SPRAY UNDER THE TONGUE ONCE EVERY 5 MINUTES FOLR 3 DOSES FOR CHEST PAIN SOLD: 03/09/2020 [facility] Nitroglycerin 0.4 MG/ACTUAT Mucosal [place] 400 mcg/spray NITR OGLYCERIN 11/01/2019 12:00:00 AM EST spray,non-aerosol 12 USE 1 SPRAY U NDER THE TONGUE ONCE EVERY 5 MINUTES FOLR 3 DOSES FOR CHEST PAIN USE 1 SPRAY UNDER THE TONGUE ONCE EVERY 5 MINUTES FOLR 3 DOSES FOR CHEST PAIN SOLD: 05/26/2020 [facility] Alprazolam 0.25 MG Oral Tablet ALPRAZOLAM 10/25/2019 12:00:00 AM EST tablet 60 TAKE ONE TABLET BY MOUTH TWICE A DAY MAXIMUM DAILY DOS E = 2 TAKE ONE TABLET BY MOUTH TWICE A DAY MAXIMUM DAILY DOSE = 2 SOLD: 10/25/2019 [facility] 0.1 % 10/21/2019 12:00:00 AM EST ointment 90 APPLY TO AFFECTED AREA(S) ONCE DAILY APPLY TO AFFECTED AREA(S) ONCE DAILY SOLD: 10/23/2019 [facility] mometasone furoate 0.001 MG/MG Topical Ointment Mometa sone Furoate 0.1 % Mometasone Furoate 0.1 % 10/20/2019 12:00:00 AM EST active 1 application eCW1 ([facility]) mometasone furoate 0.001 MG/MG Topical Ointment Mometa sone Furoate 0.1 % Mometasone Furoate 0.1 % 10/20/2019 12:00:00 AM EST 1.0 {application} active Mometasone Furoate 0.1 % eCW1 (Counts include 234 beds at the [facility]) mometasone furoate 0.001 MG/MG Topical Ointment Mometa sone Furoate 0.1 % Mometasone Furoate 0.1 % 10/20/2019 12:00:00 AM EST 1.0 {application} active Mometasone Furoate 0.1 % eCW1 (Counts include 234 beds at the [facility]) mometasone furoate 0.001 MG/MG Topical Ointment Mometa sone Furoate 0.1 % Mometasone Furoate 0.1 % 10/20/2019 12:00:00 AM EST 1.0 {application} active Mometasone Furoate 0.1 % eCW1 (Counts include 234 beds at the [facility]) mometasone furoate 0.001 MG/MG Topical Ointment Mometa sone Furoate 0.1 % Mometasone Furoate 0.1 % 10/20/2019 12:00:00 AM EST 1.0 {application} active Mometasone Furoate 0.1 % eCW1 (Counts include 234 beds at the [facility]) mometasone furoate 0.001 MG/MG Topical Ointment Mometa sone Furoate 0.1 % Mometasone Furoate 0.1 % 10/20/2019 12:00:00 AM EST 1.0 {application} active Mometasone Furoate 0.1 % eCW1 (Counts include 234 beds at the [facility]) mometasone furoate 0.001 MG/MG Topical Ointment Mometa sone Furoate 0.1 % Mometasone Furoate 0.1 % 10/20/2019 12:00:00 AM EST 1.0 {application} active Mometasone Furoate 0.1 % eCW1 (Counts include 234 beds at the [facility]) mometasone furoate 0.001 MG/MG Topical Ointment Mometa sone Furoate 0.1 % Mometasone Furoate 0.1 % 10/20/2019 12:00:00 AM EST 1.0 {application} active Mometasone Furoate 0.1 % eCW1 (Counts include 234 beds at the [facility]) mometasone furoate 0.001 MG/MG Topical Ointment Mometa sone Furoate 0.1 % Mometasone Furoate 0.1 % 10/20/2019 12:00:00 AM EST 1.0 {application} active Mometasone Furoate 0.1 % eCW1 (Counts include 234 beds at the [facility]) 500 mg 10/06/2019 12:00:00 AM EST tablet extended release 12 hr 60 TAKE ONE TABLET BY MOUTH TWICE A DAY TAKE ONE TABLET BY MOUTH TWICE A DAY SOLD: 11/01/2019 [facility] 500 mg 10/06/2019 12:00:00 AM EST tablet extended release 12 hr 60 TAKE ONE TABLET BY MOUTH TWICE A DAY TAKE ONE TABLET BY MOUTH TWICE A DAY SOLD: 10/07/2019 [facility] 500 mg 10/06/2019 12:00:00 AM EST tablet extended release 12 hr 60 TAKE ONE TABLET BY MOUTH TWICE A DAY TAKE ONE TABLET BY MOUTH TWICE A DAY SOLD: 01/08/2020 [facility] 500 mg 10/06/2019 12:00:00 AM EST tablet extended release 12 hr 60 TAKE ONE TABLET BY MOUTH TWICE A DAY TAKE ONE TABLET BY MOUTH TWICE A DAY SOLD: 03/09/2020 [facility] 500 mg 10/06/2019 12:00:00 AM EST tablet extended release 12 hr 60 TAKE ONE TABLET BY MOUTH TWICE A DAY TAKE ONE TABLET BY MOUTH TWICE A DAY SOLD: 11/30/2019 [facility] 500 mg 10/06/2019 12:00:00 AM EST tablet extended release 12 hr 60 TAKE ONE TABLET BY MOUTH TWICE A DAY TAKE ONE TABLET BY MOUTH TWICE A DAY SOLD: 02/01/2020 [facility] Alprazolam 0.25 MG Oral Tablet ALPRAZOLAM 09/24/2019 12:00:00 AM EST tablet 60 TAKE ONE TABLET BY MOUTH TWICE A DAY MAXIMUM DAILY DOS E = 2 TAKE ONE TABLET BY MOUTH TWICE A DAY MAXIMUM DAILY DOSE = 2 SOLD: 09/26/2019 [facility] 25 mg 09/14/2019 12:00:00 AM EST tablet 90 TAKE ONE TABLET BY MOUTH EVERY DAY TAKE ONE TABLET BY MOUTH EVERY DAY SOLD: 09/14/2019 [facility] Alprazolam 0.25 MG Oral Tablet ALPRAZOLAM 08/26/2019 12:00:00 AM EST tablet 60 TAKE ONE TABLET BY MOUTH TWICE A DAY MAXIMUM DAILY DOS E = 2 TAKE ONE TABLET BY MOUTH TWICE A DAY MAXIMUM DAILY DOSE = 2 SOLD: 08/26/2019 [facility] 40 mg 08/10/2019 12:00:00 AM EST tablet,delayed release (DR/EC) 30 TAKE ONE TABLET BY MOUTH EVERY DAY TAKE ONE TABLET BY MOUTH EVERY DAY SOLD: 10/12/2019 [facility] 40 mg 08/10/2019 12:00:00 AM EST tablet,delayed release (DR/EC) 30 TAKE ONE TABLET BY MOUTH EVERY DAY TAKE ONE TABLET BY MOUTH EVERY DAY SOLD: 12/17/2019 [facility] 40 mg 08/10/2019 12:00:00 AM EST tablet,delayed release (DR/EC) 30 TAKE ONE TABLET BY MOUTH EVERY DAY TAKE ONE TABLET BY MOUTH EVERY DAY SOLD: 01/13/2020 [facility] 40 mg 08/10/2019 12:00:00 AM EST tablet,delayed release (DR/EC) 30 TAKE ONE TABLET BY MOUTH EVERY DAY TAKE ONE TABLET BY MOUTH EVERY DAY SOLD: 11/16/2019 [facility] 40 mg 08/10/2019 12:00:00 AM EST tablet,delayed release (DR/EC) 30 TAKE ONE TABLET BY MOUTH EVERY DAY TAKE ONE TABLET BY MOUTH EVERY DAY SOLD: 09/14/2019 [facility] 40 mg 08/10/2019 12:00:00 AM EST tablet,delayed release (DR/EC) 30 TAKE ONE TABLET BY MOUTH EVERY DAY TAKE ONE TABLET BY MOUTH EVERY DAY SOLD: 08/10/2019 [facility] 25 mg 08/03/2019 12:00:00 AM EST tablet 30 TAKE ONE TABLET BY MOUTH EVERY DAY TAKE ONE TABLET BY MOUTH EVERY DAY SOLD: 11/12/2019 [facility] 25 mg 08/03/2019 12:00:00 AM EST tablet 30 TAKE ONE TABLET BY MOUTH EVERY DAY TAKE ONE TABLET BY MOUTH EVERY DAY SOLD: 01/13/2020 [facility] 25 mg 08/03/2019 12:00:00 AM EST tablet 30 TAKE ONE TABLET BY MOUTH EVERY DAY TAKE ONE TABLET BY MOUTH EVERY DAY SOLD: 09/11/2019 [facility] 25 mg 08/03/2019 12:00:00 AM EST tablet 30 TAKE ONE TABLET BY MOUTH EVERY DAY TAKE ONE TABLET BY MOUTH EVERY DAY SOLD: 12/13/2019 [facility] 25 mg 08/03/2019 12:00:00 AM EST tablet 30 TAKE ONE TABLET BY MOUTH EVERY DAY TAKE ONE TABLET BY MOUTH EVERY DAY SOLD: 10/07/2019 [facility] 25 mg 08/03/2019 12:00:00 AM EST tablet 30 TAKE ONE TABLET BY MOUTH EVERY DAY TAKE ONE TABLET BY MOUTH EVERY DAY SOLD: 08/07/2019 [facility] BLOOD SUGAR DIAGNOSTIC 07/24/2019 12:00:00 AM EST strip 200 USE DIRECTED - TWO TIMES A DAY USE DIRECTED - TWO TIMES A DAY SOLD: 05/26/2020 [facility] Losartan Potassium 50 MG Oral Tablet LOSARTAN POTASSIUM 10/2018 12:00:00 AM EDT tablet 30 TAKE ONE TABLET BY MOUTH FERNY RY DAY TAKE ONE TABLET BY MOUTH EVERY DAY SOLD: 10/23/2019 [facility] Losartan Potassium 50 MG Oral Tablet LOSARTAN POTASSIUM 10/2018 12:00:00 AM EDT tablet 30 TAKE ONE TABLET BY MOUTH FERNY RY DAY TAKE ONE TABLET BY MOUTH EVERY DAY SOLD: 09/26/2019 [facility] Losartan Potassium 50 MG Oral Tablet LOSARTAN POTASSIUM 10/2018 12:00:00 AM EDT tablet 30 TAKE ONE TABLET BY MOUTH FERNY RY DAY TAKE ONE TABLET BY MOUTH EVERY DAY SOLD: 08/26/2019 [facility] 50 mg 06/16/2019 12:00:00 AM EDT tablet 30 TAKE ONE TABLET BY MOUTH EVERY DAY TAKE ONE TABLET BY MOUTH EVERY DAY SOLD: 11/27/2019 [facility] 30 mg 06/09/2019 12:00:00 AM EDT tablet 30 TAKE ONE TABLET BY MOUTH AT BEDTIME TAKE ONE TABLET BY MOUTH AT BEDTIME SOLD: 01/08/2020 [facility] 30 mg 06/09/2019 12:00:00 AM EDT tablet 30 TAKE ONE TABLET BY MOUTH AT BEDTIME TAKE ONE TABLET BY MOUTH AT BEDTIME SOLD: 03/28/2020 [facility] 30 mg 06/09/2019 12:00:00 AM EDT tablet 30 TAKE ONE TABLET BY MOUTH AT BEDTIME TAKE ONE TABLET BY MOUTH AT BEDTIME SOLD: 02/01/2020 [facility] 30 mg 06/09/2019 12:00:00 AM EDT tablet 30 TAKE ONE TABLET BY MOUTH AT BEDTIME TAKE ONE TABLET BY MOUTH AT BEDTIME SOLD: 08/10/2019 [facility] 30 mg 06/09/2019 12:00:00 AM EDT tablet 30 TAKE ONE TABLET BY MOUTH AT BEDTIME TAKE ONE TABLET BY MOUTH AT BEDTIME SOLD: 11/01/2019 [facility] 30 mg 06/09/2019 12:00:00 AM EDT tablet 30 TAKE ONE TABLET BY MOUTH AT BEDTIME TAKE ONE TABLET BY MOUTH AT BEDTIME SOLD: 11/30/2019 [facility] 30 mg 06/09/2019 12:00:00 AM EDT tablet 30 TAKE ONE TABLET BY MOUTH AT BEDTIME TAKE ONE TABLET BY MOUTH AT BEDTIME SOLD: 09/11/2019 [facility] 30 mg 06/09/2019 12:00:00 AM EDT tablet 30 TAKE ONE TABLET BY MOUTH AT BEDTIME TAKE ONE TABLET BY MOUTH AT BEDTIME SOLD: 03/05/2020 [facility] 30 mg 06/09/2019 12:00:00 AM EDT tablet 30 TAKE ONE TABLET BY MOUTH AT BEDTIME TAKE ONE TABLET BY MOUTH AT BEDTIME SOLD: 10/07/2019 [facility] 400 mcg/spray 06/02/2019 12:00:00 AM EDT spray,non-aerosol 1 2 USE 1 SPRAY UNDER THE TONGUE ONCE EVERY 5 MINUTES FOLR 3 DOSES FOR CHEST PAIN USE 1 SPRAY UNDER THE TONGUE ONCE EVERY 5 MINUTES FOLR 3 DOSES FOR CHEST PAIN SOLD: 08/19/2019 [facility] 1,000 mg 05/25/2019 12:00:00 AM EDT tablet 75 TAKE 1 & 1/2 TABLETS BY MOUTH EVERY MORNING AND TAKE 1 TABLET BY MOUTH IN THE EVENING WITH MEALS TAKE 1 & 1/2 TABLETS BY MOUTH EVERY MORNING AND TAKE 1 TABLET BY MOUTH IN THE EVENING WITH MEALS SOLD: 10/23/2019 [facility] 1,000 mg 05/25/2019 12:00:00 AM EDT tablet 75 TAKE 1 & 1/2 TABLETS BY MOUTH EVERY MORNING AND TAKE 1 TABLET BY MOUTH IN THE EVENING WITH MEALS TAKE 1 & 1/2 TABLETS BY MOUTH EVERY MORNING AND TAKE 1 TABLET BY MOUTH IN THE EVENING WITH MEALS SOLD: 08/19/2019 [facility] 1,000 mg 05/25/2019 12:00:00 AM EDT tablet 75 TAKE 1 & 1/2 TABLETS BY MOUTH EVERY MORNING AND TAKE 1 TABLET BY MOUTH IN THE EVENING WITH MEALS TAKE 1 & 1/2 TABLETS BY MOUTH EVERY MORNING AND TAKE 1 TABLET BY MOUTH IN THE EVENING WITH MEALS SOLD: 09/14/2019 [facility] 75 mg 05/11/2019 12:00:00 AM EDT tablet 30 TAKE ONE TABLET BY MOUTH EVERY DAY TAKE ONE TABLET BY MOUTH EVERY DAY SOLD: 08/07/2019 [facility] 75 mg 05/11/2019 12:00:00 AM EDT tablet 30 TAKE ONE TABLET BY MOUTH EVERY DAY TAKE ONE TABLET BY MOUTH EVERY DAY SOLD: 09/11/2019 [facility] 75 mg 05/11/2019 12:00:00 AM EDT tablet 30 TAKE ONE TABLET BY MOUTH EVERY DAY TAKE ONE TABLET BY MOUTH EVERY DAY SOLD: 10/12/2019 [facility] carvedilol 12.5 MG Oral Tablet CARVEDILOL 05/05/2019 12:00:00 AM EDT tablet 60 TAKE ONE TABLET BY MOUTH TWICE A DAY TAKE ONE TABLET BY MOUT H TWICE A DAY SOLD: 10/12/2019 [facility] carvedilol 12.5 MG Oral Tablet CARVEDILOL 05/05/2019 12:00:00 AM EDT tablet 60 TAKE ONE TABLET BY MOUTH TWICE A DAY TAKE ONE TABLET BY MOUT H TWICE A DAY SOLD: 08/10/2019 [facility] carvedilol 12.5 MG Oral Tablet CARVEDILOL 05/05/2019 12:00:00 AM EDT tablet 60 TAKE ONE TABLET BY MOUTH TWICE A DAY TAKE ONE TABLET BY MOUT H TWICE A DAY SOLD: 09/14/2019 [facility] carvedilol 12.5 MG Oral Tablet CARVEDILOL 04/13/2019 12:00:00 AM EDT tablet 60 TAKE ONE TABLET BY MOUTH TWICE A DAY TAKE ONE TABLET BY MOUT H TWICE A DAY SOLD: 01/01/2020 [facility] carvedilol 12.5 MG Oral Tablet CARVEDILOL 04/13/2019 12:00:00 AM EDT tablet 16 TAKE ONE TABLET BY MOUTH TWICE A DAY TAKE ONE TABLET BY MOUT H TWICE A DAY SOLD: 11/01/2019 [facility] carvedilol 12.5 MG Oral Tablet CARVEDILOL 04/13/2019 12:00:00 AM EDT tablet 60 TAKE ONE TABLET BY MOUTH TWICE A DAY TAKE ONE TABLET BY MOUT H TWICE A DAY SOLD: 11/03/2019 [facility] carvedilol 12.5 MG Oral Tablet CARVEDILOL 04/13/2019 12:00:00 AM EDT tablet 60 TAKE ONE TABLET BY MOUTH TWICE A DAY TAKE ONE TABLET BY MOUT H TWICE A DAY SOLD: 11/30/2019 [facility] carvedilol 12.5 MG Oral Tablet CARVEDILOL 04/13/2019 12:00:00 AM EDT tablet 60 TAKE ONE TABLET BY MOUTH TWICE A DAY TAKE ONE TABLET BY MOUT H TWICE A DAY SOLD: 02/01/2020 [facility] carvedilol 12.5 MG Oral Tablet CARVEDILOL 04/13/2019 12:00:00 AM EDT tablet 16 TAKE ONE TABLET BY MOUTH TWICE A DAY TAKE ONE TABLET BY MOUT H TWICE A DAY SOLD: 10/25/2019 [facility] 500 mg 03/25/2019 12:00:00 AM EDT tablet extended release 12 hr 60 TAKE ONE TABLET BY MOUTH TWICE A DAY TAKE ONE TABLET BY MOUTH TWICE A DAY SOLD: 09/05/2019 [facility] 500 mg 03/25/2019 12:00:00 AM EDT tablet extended release 12 hr 60 TAKE ONE TABLET BY MOUTH TWICE A DAY TAKE ONE TABLET BY MOUTH TWICE A DAY SOLD: 08/07/2019 [facility] 100 unit/mL (3 mL) 03/24/2019 12:00:00 AM EDT insulin pen 30 INJECT 100 UNITS SUBCUTANEOUSLY EVERY NIGHT INJECT 100 UNITS SUBCUTANEOUSLY EVERY NIGHT SOLD: 10/07/2019 [facility] 100 unit/mL (3 mL) 03/24/2019 12:00:00 AM EDT insulin pen 30 INJECT 100 UNITS SUBCUTANEOUSLY EVERY NIGHT INJECT 100 UNITS SUBCUTANEOUSLY EVERY NIGHT SOLD: 08/26/2019 [facility] 80 mg 01/29/2019 12:00:00 AM EDT tablet 30 TAKE ONE TABLET BY MOUTH EVERY DAY TAKE ONE TABLET BY MOUTH EVERY DAY SOLD: 10/07/2019 [facility] 80 mg 01/29/2019 12:00:00 AM EDT tablet 30 TAKE ONE TABLET BY MOUTH EVERY DAY TAKE ONE TABLET BY MOUTH EVERY DAY SOLD: 11/01/2019 [facility] 80 mg 01/29/2019 12:00:00 AM EDT tablet 30 TAKE ONE TABLET BY MOUTH EVERY DAY TAKE ONE TABLET BY MOUTH EVERY DAY SOLD: 01/13/2020 [facility] 80 mg 01/29/2019 12:00:00 AM EDT tablet 30 TAKE ONE TABLET BY MOUTH EVERY DAY TAKE ONE TABLET BY MOUTH EVERY DAY SOLD: 09/11/2019 [facility] 80 mg 01/29/2019 12:00:00 AM EDT tablet 30 TAKE ONE TABLET BY MOUTH EVERY DAY TAKE ONE TABLET BY MOUTH EVERY DAY SOLD: 12/13/2019 [facility] 80 mg 01/29/2019 12:00:00 AM EDT tablet 30 TAKE ONE TABLET BY MOUTH EVERY DAY TAKE ONE TABLET BY MOUTH EVERY DAY SOLD: 08/07/2019 [facility] Insurance Providers Payer name Policy type / Coverage type Policy ID Covered constitution party ID Covered constitution party's relationship to antunez Policy Antunez Plan Information [employer] [place] PPO [id number] SP [id number] SELF [id number] BLUE CROSS [id number] [facility] [id number] [employer] [id number] Adelina YNE [id number] ANSI-Commercial [id number] ANSI-Commercial [id number] ANSI-Commercial [id number] [employer] [id number] Blue [employer]/Shield [id number] ID IDENTIFICATION [id number] Other In surance [id number] [employer] [id number] [employer] [id number] ANSI-Commercial [id number] ANSI-Commercial [id number] ANSI-Commercial [id number] ANSI-Commercial [id number] [employer] PI PI ANSI-Commercial [id number] ANSI-Commercial [id number] ANSI-Commercial [id number] ANSI-Commercial [id number] ANSI-Commercial [id number] ANSI-Commercial [id number] [employer] [place] PPO 302/307 [id number] SP [id number] ANSI-Commercial [id number] ANSI-Commercial [id number] ANSI-Commercial [id number] ANSI-Commercial [id number] ANSI-Commercial [id number] ANSI-Commercial [id number] ANSI-Commercial [id number] NO FAULT [id number] Adelina [id number] NO FAULT [id number] Adelina [id number] NO FAULT PI PI [employer] [id number] [employer]/Shield [id number] ID IDENTIFICATION [id number] Other In surance [id number] Problems, Conditions, and Diagnoses Code Display Name Description Problem Type Effective Dates Data Source(s) G47.30 Sleep apnea, unspecified Sleep apnea, unspecified Diag nosis 06/30/2020 02:55:39 PM EDT [facility] E11.51 Type 2 diabetes mellitus wit h diabetic peripheral angiopathy without gangrene Type 2 diabetes mellitus with diabetic p Diagnosis 06/30/2020 02:55:39 PM EDT [facility] Z68.41 Body mass index (BMI) 40.0-44.9, adult B casey mass index (BMI)40.0-44.9, adult Diagnosis 06/30/2020 02:55:39 PM EDT [facility] E66.01 Morbid (severe) obesity due to excess ca lories Morbid (severe) obesity due to excess ca Diagnosis 06/30/2020 02:55:39 PM EDT [facility] I10 Essential (primary) hypertension Essential (primary) h ypertension Diagnosis 06/30/2020 02:55:39 PM EDT [facility] 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 pectoris Atherosclerotic heart disease of [place] Diagnosis 06/30/2020 02:55:39 PM EDT [facility] R07.9 Chest pain, unspecified Chest pain, unspecified Diagno sis 06/30/2020 02:55:39 PM EDT [facility] E78.5 Hyperlipidemia, unspecified Hyperlipidemia, unspecifie d Diagnosis 06/30/2020 02:55:39 PM EDT [facility] Results ID Date Data Source [id number] 09/28/2020 10:28:00 AM EST [facility] Patient presents as: Symptomatic COVID Reason PCP CTY Surgery/Appointment Date: na Support person(if yes for who): N Name Value Range Interpretation Code Description Data Jeanine rce(s) Supporting Document(s) COVID 19 Detected Not Detected A [facility] This nucleic acid amplification test wa s developed and its performance characteristics determined by [employer]. Nucleic acid amplification tests include PCR and TMA. This test has not been FDA cleared or approved. This test has been authorized by FDA under an Emergency Use Authorization (EUA). This test is only authorized for the duration of time the declaration that circumstances exist justifying the authorization of the emergency use of in vitro diagnostic tests for detection of SARS-CoV-2 virus and/or diagnosis of COVID-19 infection under section 564(b)(1) of the Act, 21 U.S.C. 360bbb-3(b) (1), unless the authorization is terminated or revoked sooner. When diagnostic testing is negative, the possibility of a false negative result should be considered in the context of a patient's recent exposures and the presence of clinical signs and symptoms consistent with COVID-19. An individual without symptoms of COVID-19 and who is not shedding SARS-CoV-2 virus would expect to have a negative (not detected) result in this assay. Performed at: [facility] [id number] Implant Coordinator: Sabra Morocho MD, Phone: [phone] Faxed result to office and JOVAN. Released result. Please call laboratory with further questions. ID Date Data Source [id number] 07/26/2020 02:38:01 PM EST [facility] Name Value Range Interpretation Code Description Data Jeanine rce(s) Supporting Document(s) WBC 9.5 10*3/uL (4.1-11.0) [facility] RBC 4.71 10*6/uL (4.60-6.10) [facility] HGB 14.7 g/dL (13.5-18.0) [facility] HCT 42.3 % (41.0-53.0) [facility] MCV 89.7 fL (80.0-95.0) [facility] MCH 31.2 pg (27.0-32.0) [facility] MCHC 34.8 g/dL (32.0-36.0) [facility] RDW 12.9 % (10.5-14.5) [facility] PLT 196 10*3/uL (150-450) [facility] MPV 9.0 fL (7.1-10.7) [facility] [place] [facility] ID Date Data Source [id number] 07/26/2020 03:27:56 PM EST [facility] Name Value Range Interpretation Code Description Data Jeanine rce(s) Supporting Document(s) HEMOGLOBIN A1C @ 8.2 % (4.0-6.0) H [facility] [place] [facility] Performed using Siemens [place] immunoassa y.Care must be taken when interpreting [id number] in patients with a hemoglobin variantor decreased erythrocyte lifespan. Values 5.7 - 6.4% suggest prediabetes.Values >=6.5% are diagnostic for diabetes.REFERENCE: DIABETES CARE 2018: 41(S13-S27). EST AVERAGE GLUCOSE 189 mg/dL Laboratory [place] [facility] ID Date Data Source [id number] 07/26/2020 03:35:58 PM EST [facility] [place] [facility] Name Value Range Interpretation Code Description Data Jeanine rce(s) Supporting Document(s) SODIUM 139 mmol/L (136-145) [facility] [place] [facility] - CORE POTASSIUM 3.5 mmol/L (3.6-5.2) L [facility] [place] of [facility] - CORE CHLORIDE 103 mmol/L (100-108) [facility] [place] [facility] - CORE CO2 29 mmol/L (22-31) [facility] [place] [facility] - CORE ANION GAP 7 mmol/L (7-16) [facility] [place] of [facility] - CORE UREA NITROGEN 15 mg/dL (7-24) [facility] - CORE CREATININE 0.92 mg/dL (0.80-1.30) [facility] - CORE BUN/CREAT RATIO 16.3 RATIO (10.0-20.0) [facility] [place] of [facility] - CORE GLUCOSE 110 mg/dL (70-99) H [facility] [place] of [facility] - CORE CALCIUM 8.6 mg/dL (8.4-10.2) [facility] [place] of [facility] - CORE TOTAL PROTEIN 6.8 g/dL (6.4-8.2) [facility] - CORE ALBUMIN 3.8 g/dL (3.5-4.6) Laboratory [place] of [facility] - CORE GLOBULIN 3.0 g/dL (2.7-4.3) [facility] [place] [facility] ALB/GLOB RATIO 1.3 RATIO Laboratory [facility] ALKALINE PHOSPHATASE 62 U/L (45-117) Laborator [facility] [place] [facility] BILIRUBIN,TOTAL 0.5 mg/dL (0.0-1.0) [facility] PLEASE NOTE:Total bilirubin results may be falselyelevated in patients taking Eltrombopag. AST (SGOT) 20 U/L (11-39) [facility] [place] [facility] ALT (SGPT) 46 U/L (12-78) [facility] [place] [facility] [facility] GFR >60 ml/min/1.73m2 (>59) [facility] GFR ( AMER) >60 ml/min/1.73m2 (>59) [facility] [place] [facility] GFR INTERPRETATION [facility] [place] [facility] --NORMAL KIDNEY FUNCTION OR MILD DISEASE - GFR >OR= 60CHRONIC KIDNEY DISEASE - GFR 15 - 59RENAL FAILURE - GFR <15 Est. GFR calculation based on the MDRDstudy equation, which assumes a steadystate for creatinine. Est. GFR should notbe used for medication dosing. ID Date Data Source [id number] 07/26/2020 03:35:58 PM EST [facility] Name Value Range Interpretation Code Description Data Jeanine rce(s) Supporting Document(s) CHOLESTEROL @ 107 mg/dL (0-200) [facility] [place] [place] TRIGLYCERIDE @ 104 mg/dL (30-200) [facility] [place] [place] FASTING HDL CHOLESTEROL @ 35 mg/dL (>40) L [facility] PER NCEP ATP III GUIDELINES:RESULTS LOWE R THAN 40 MG/DL ARE SUGGESTIVEOF INCREASED RISK FOR CORONARY ARTERYDISEASE. RESULTS > OR = TO 60 MG/DL ARECONSIDERED A NEGATIVE RISK FACTOR. CHOL/HDL RATIO 3.1 RATIO Laboratory [facility] [place] C[facility] INTERPRETATION OF CHOL-HDL RATIO CHD RISK FEMALE MALEVERY HIGH >8.3 >14.3HIGH 5.6- 8.3 6.7- 14.3AVERAGE 3.7- 5.6 4.0- 6.7BELOW AVERAGE 2.5- 3.7 2.7- 4.0PROTECTED <2.5 <2.7 LDL CHOL (CALC) 51 mg/dL (<130) [facility] [place] CORE PER NCEP ATP III GUIDELINES: OPTIMAL < 100 NEAR OPTIMAL 100 - 129BORDERLINE HIGH 130 - 159 HIGH 160 - 189 VERY HIGH > 189 ID Date Data Source [id number] 03/31/2020 11:04:32 AM EDT [facility] [employer] - CORE Name Value Range Interpretation Code Description Data Jeanine rce(s) Supporting Document(s) SODIUM 140 mmol/L (136-145) [facility] [place] [facility] [place] C[facility] POTASSIUM 3.7 mmol/L (3.6-5.2) [facility] [place] [facility] [place] CORE CHLORIDE 103 mmol/L (100-108) [facility] [place] of [employer] - CORE CO2 29 mmol/L (22-31) [facility] [place] [facility] [employer] - CORE ANION GAP 8 mmol/L (7-16) [facility] [place] [facility] [employer] - CORE UREA NITROGEN 18 mg/dL (7-24) [facility] [employer] - CORE CREATININE 0.86 mg/dL (0.80-1.30) [facility] [employer] - CORE BUN/CREAT RATIO 20.9 RATIO (10.0-20.0) H [facility] [place] [facility] [place] CORE GLUCOSE 131 mg/dL (70-99) H Laboratory [place] of [employer] - CORE CALCIUM 8.7 mg/dL (8.4-10.2) Laboratory [place] of [employer] - CORE GFR >60 ml/min/1.73m2 (>59) [facility] - CORE GFR ( AMER) >60 ml/min/1.73m2 (>59) Laboratory [place] [facility] [place] C[facility] GFR INTERPRETATION [facility] [place] [facility] [place] CORE --NORMAL KIDNEY FUNCTION OR MILD DISEASE - GFR >OR= 60CHRONIC KIDNEY DISEASE - GFR 15 - 59RENAL FAILURE - GFR <15 Est. GFR calculation based on the MDRDstudy equation, which assumes a steadystate for creatinine. Est. GFR should notbe used for medication dosing. ID Date Data Source [id number] 03/31/2020 11:23:21 AM EDT [facility] Name Value Range Interpretation Code Description Data Jeanine rce(s) Supporting Document(s) ALBUMIN, URINE 0.60 mg/dL [facility] CREATININE,URINE 34.30 mg/dL [facility] AL[facility]/CREATININE RATIO 17.5 ug/mg (0.0-29.9) [facility] ID Date Data Source [id number] 03/31/2020 11:37:39 AM EDT [facility] [place] Name Value Range Interpretation Code Description Data Jeanine rce(s) Supporting Document(s) HEMOGLOBIN A1C @ 7.7 % (4.0-6.0) H [facility] Performed using Siemens [place] immunoassa y.Care must be taken when interpreting [id number] in patients with a hemoglobin variantor decreased erythrocyte lifespan. Values 5.7 - 6.4% suggest prediabetes.Values >=6.5% are diagnostic for diabetes.REFERENCE: DIABETES CARE 2018: 41(S13-S27). EST AVERAGE GLUCOSE 174 mg/dL Laboratory [facility] ID Date Data Source [id number] 10/13/2019 10:00:45 AM EST [facility] Name Value Range Interpretation Code Description Data Jeanine rce(s) Supporting Document(s) WBC 11.1 10*3/uL (4.1-11.0) H [facility] RBC 4.74 10*6/uL (4.60-6.10) [facility] HGB 14.5 g/dL (13.5-18.0) [facility] HCT 42.2 % (41.0-53.0) [facility] MCV 89.1 fL (80.0-95.0) [facility] MCH 30.6 pg (27.0-32.0) [facility] MCHC 34.4 g/dL (32.0-36.0) [facility] RDW 13.0 % (10.5-14.5) [facility] PLT 205 10*3/uL (150-450) [facility] MPV 8.8 fL (7.1-10.7) [facility] [place] [facility] ID Date Data Source [id number] 10/13/2019 10:27:44 AM EST [facility] Name Value Range Interpretation Code Description Data Jeanine rce(s) Supporting Document(s) SODIUM 142 mmol/L (136-145) Laboratory [place] of [facility] - CORE POTASSIUM 3.8 mmol/L (3.6-5.2) Laboratory [place] of [facility] - CORE CHLORIDE 104 mmol/L (100-108) [facility] [place] of [facility] - CORE CO2 33 mmol/L (22-31) H [facility] [place] [facility] [facility] ANION GAP 5 mmol/L (7-16) L Laboratory [place] of [facility] - CORE UREA NITROGEN 15 mg/dL (7-24) [facility] CREATININE 0.95 mg/dL (0.80-1.30) [facility] BUN/CREAT RATIO 15.8 RATIO (10.0-20.0) [facility] [place] [facility] [facility] GLUCOSE 140 mg/dL (70-99) H [facility] [place] [facility] [facility] CALCIUM 8.5 mg/dL (8.4-10.2) [facility] [place] [facility] [facility] TOTAL PROTEIN 6.6 g/dL (6.4-8.2) [facility] ALBUMIN 3.7 g/dL (3.5-4.6) Laboratory [place] of [facility] - CORE GLOBULIN 2.9 g/dL (2.7-4.3) Laboratory [place] of [place] ALB/GLOB RATIO 1.3 RATIO Laboratory [facility] [employer] - CORE ALKALINE PHOSPHATASE 71 U/L (45-117) Laborator [facility] [place] [facility] [place] - CORE BILIRUBIN,TOTAL 0.5 mg/dL (0.0-1.0) Laboratory [facility] of [facility] [employer] AST (SGOT) 21 U/L (11-39) Laboratory [place] of [employer] - CORE ALT (SGPT) 43 U/L (12-78) Laboratory [place] of [employer] - CORE GFR >60 ml/min/1.73m2 (>59) Laboratory [facility] - CORE GFR ( AMER) >60 ml/min/1.73m2 (>59) Laboratory [place] of [employer] - [employer] GFR INTERPRETATION Laboratory [place] of [place] CORE --NORMAL KIDNEY FUNCTION OR MILD DISEASE - GFR >OR= 60CHRONIC KIDNEY DISEASE - GFR 15 - 59RENAL FAILURE - GFR <15 Est. GFR calculation based on the MDRDstudy equation, which assumes a steadystate for creatinine. Est. GFR should notbe used for medication dosing. ID Date Data Source [id number] 10/13/2019 10:27:44 AM EST [facility] Name Value Range Interpretation Code Description Data Jeanine rce(s) Supporting Document(s) PSA,TOTAL SCREEN @ 0.6 ng/mL (0.0-4.0) Laboratory [place] of [facility] IN 20% OF CASES W/ BPH, PSA MAY BE10 NG/ ML OR MORE. SERUM PSACONCENTRATION SHOULD NOT BE INTERPRETEDAS ABSOLUTE EVIDENCE FOR THE PRESENCEOR ABSENCE OF MALIGNANT DISEASE. [facility] [employer] LOCI CHEMILUMINESCENTIMMUNOASSAY (CALIBRATION TRACEABLE [facility] , 1998,96/668).VALUES OBTAINED WITH DIFFERENT ASSAYMETHODS OR KITS CANNOT BE USEDINTERCHANGEABLY. ID Date Data Source [id number] 10/13/2019 10:27:44 AM EST Laboratory [facility] Name Value Range Interpretation Code Description Data Jeanine rce(s) Supporting Document(s) CHOLESTEROL @ 110 mg/dL (0-200) Laboratory [facility] of [facility] TRIGLYCERIDE @ 92 mg/dL (30-200) Laboratory [facility] of [facility] CORE FASTING HDL CHOLESTEROL @ 34 mg/dL (>40) L Laboratory [facility] CORE PER NCEP ATP III GUIDELINES:RESULTS LOWE R THAN 40 MG/DL ARE SUGGESTIVEOF INCREASED RISK FOR CORONARY ARTERYDISEASE. RESULTS > OR = TO 60 MG/DL ARECONSIDERED A NEGATIVE RISK FACTOR. CHOL/HDL RATIO 3.2 RATIO Laboratory [facility] INTERPRETATION OF CHOL-HDL RATIO CHD RISK FEMALE MALEVERY HIGH >8.3 >14.3HIGH 5.6- 8.3 6.7- 14.3AVERAGE 3.7- 5.6 4.0- 6.7BELOW AVERAGE 2.5- 3.7 2.7- 4.0PROTECTED <2.5 <2.7 LDL CHOL (CALC) 58 mg/dL (<130) Laboratory [facility] PER NCEP ATP III GUIDELINES: OPTIMAL < 100 NEAR OPTIMAL 100 - 129BORDERLINE HIGH 130 - 159 HIGH 160 - 189 VERY HIGH > 189 ID Date Data Source [id number] 10/13/2019 10:28:19 AM EST Laboratory [facility] Name Value Range Interpretation Code Description Data Jeanine rce(s) Supporting Document(s) HEMOGLOBIN A1C @ 7.7 % (4.0-6.0) H Laboratory [facility] Performed using Siemens [place] immunoassa y.Care must be taken when interpreting JsI7pzwihenl in patients with a hemoglobin variantor decreased erythrocyte lifespan. Values 5.7 - 6.4% suggest prediabetes.Values >=6.5% are diagnostic for diabetes.REFERENCE: DIABETES CARE 2018: 41(S13-S27). EST AVERAGE GLUCOSE 174 mg/dL Laboratory [place] of [facility] Procedure Social History Code Duration Value Status Description Data Source(s ) Smoking 09/06/2020 12:00:00 AM EST Never Smoker completed Never S alan eCW1 ([facility]) Smoking 09/06/2020 12:00:00 AM EST Never Smoker completed Never S moker eCW1 ([facility]) Smoking 04/05/2020 12:00:00 AM EDT Never Smoker completed Never S moker eCW1 ([facility]) Smoking 04/05/2020 12:00:00 AM EDT Never Smoker completed Never S moker eCW1 ([facility]) Smoking 04/05/2020 12:00:00 AM EDT Never Smoker completed Never S moker eCW1 ([facility]) Smoking 04/05/2020 12:00:00 AM EDT Never Smoker completed Never S moker eCW1 ([facility]) Smoking 10/20/2019 12:00:00 AM EST Never Smoker completed Never S moker eCW1 ([facility]) Smoking 10/20/2019 12:00:00 AM EST Never Smoker completed Never S moker eCW1 ([facility]) Vital Signs ID Date Data Source UNK Name Value Range Interpretation Code Description Data Source(s) Diastolic blood pressure 80 mm[Hg] 80 mm[Hg] eCW1 ([facility]) Systolic blood pressure 140 mm[Hg] 140 mm[Hg] e CW1 ([facility]) Body temperature 97.9 [degF] 97.9 [degF] eCW1 ( [facility]) Respiratory rate 18 /min 18 /min eCW1 ([facility]) Heart rate 79 /min 79 /min eCW1 ([facility]) Body mass index (BMI) [Ratio] 33.90 kg/m2 33.90 kg/m2 eCW1 ([facility]) Body height 72 [in_i] 72 [in_i] eCW1 ([facility]) Body weight 250 [lb_av] 250 [lb_av] eCW1 ([facility]) Diastolic blood pressure 74 mm[Hg] 74 mm[Hg] eCW1 ([facility]) Systolic blood pressure 130 mm[Hg] 130 mm[Hg] e CW1 ([facility]) Body temperature 97.7 [degF] 97.7 [degF] eCW1 ( [facility]) Respiratory rate 18 /min 18 /min eCW1 ([facility]) Heart rate 86 /min 86 /min eCW1 ([facility]) Body mass index (BMI) [Ratio] 34.04 kg/m2 34.04 kg/m2 eCW1 ([facility]) Body height 72 [in_us] 72 [in_us] eCW1 ([facility]) Body weight Measured 251 [lb_av] 251 [lb_av] eC W1 ([facility]) Patient Treatment Plan of Care Planned Activity Planned Date Details Description Data Source (s) selenium sulfide 22.5 MG/ML Medicated Shampoo 04/05/2020 12:00:00 A M EDT eCW1 ([facility]) selenium sulfide 22.5 MG/ML Medicated Shampoo 04/05/2020 12:00:00 A M EDT eCW1 ([facility]) selenium sulfide 22.5 MG/ML Medicated Shampoo 04/05/2020 12:00:00 A M EDT eCW1 ([facility]) ciclopirox 7.7 MG/ML Topical Cream [Loprox] 11/26/2019 12:00:00 AM EDT eCW1 ([facility]) ciclopirox 7.7 MG/ML Topical Cream [Loprox] 11/26/2019 12:00:00 AM EDT eCW1 ([facility]) ciclopirox 7.7 MG/ML Topical Cream [Loprox] 11/26/2019 12:00:00 AM EDT eCW1 ([facility]) ciclopirox 7.7 MG/ML Topical Cream [Loprox] 11/26/2019 12:00:00 AM EDT eCW1 ([facility]) mometasone furoate 0.001 MG/MG Topical Ointment 10/20/2019 12:00:00 AM EST eCW1 ([facility]) mometasone furoate 0.001 MG/MG Topical Ointment 10/20/2019 12:00:00 AM EST eCW1 ([facility]) mometasone furoate 0.001 MG/MG Topical Ointment 10/20/2019 12:00:00 AM EST eCW1 ([facility])
--- OUTSIDE RECORDS SUMMARY | 2020-09-29 13:26 | CCD ---
Author Author [facility]st ems Organization [facility] ems Address Unknown Phone Unavailable Care Team Providers Care Architecture Professor Name Role Phone Kristian Okeefe Unavailable PROBLEMS Type Condition ICD9-CM Code [id number] Code Onset Dates Condition S tatus SNOMED Code Notes Problem Hyperlipidemia, unspecified E78.5 Active 5582 2004 Problem Vitamin D deficiency, unspecified E55.9 Active 07677475 Problem Type 2 diabetes mellitus with hyperglycemia E11.65 Active 364752075681315 Problem Obstructive sleep apnea (adult) (pediatric) G47.33 Active 44650448 Problem Atherosclerotic heart diseas e of [place] coronary artery without angina pectoris I25.10 Active 601445932586846 Problem Major depressive disorder, single episode, unspecified F32.9 Active 01438643 Problem Hypertensive heart disease without heart failure I 11.9 Active 62310196 Problem Generalized anxiety disorder F41.1 Active 218 56956 Problem Encounter for screening for malignant neoplasm of prostate Z12.5 Active 034192546 Problem Primary generalized (osteo)arthritis M15.0 Act leilani 577089398 Problem Gastro-esophageal reflux disease without esophagitis K21.9 Active 796062788 Problem Chronic systolic (congestive) heart failure I50.22 Active 190407053 ALLERGIES Allergen (clinical drug ingredient) Drug/Non Drug Allergy do cumented on EMR Reaction Allergy Type Onset Date Status bee stings Unknown Non Drug Allergy Active ENCOUNTERS from 1960 to 2020-07-21 Encounter Location Date Provider Diagnosis [place] [id number] [place] [address] Mar, Kwan Okeefe Tinea versicolor B36.0 ; Type 2 diabetes mellitus with hyperglycemia E11.65 ; Hypertensive heart disease without heart failure I11.9 ; Atherosclerotic heart disease of [place] coronary artery without angina pectoris I25.10 ; Hyperlipidemia, unspecified E78.5 ; Obstructive sleep apnea (adult) (pediatric) G47.33 and Chronic systolic (congestive) heart failure I50.22 IMMUNIZATIONS Vaccine Route Administration Date Status Pneumococcal [...] Education Language: Question Answer Notes Languages spoken: Greek Sexual Hx: Question Answer Notes Had sex [...] REASON FOR REFERRAL No Information VITAL SIGNS Weight 250 lbs Mar, Height 72 in Mar, BMI 33.90 kg/m2 Mar, Heart Rate 79 /min Mar, Respiratory Rate 18 /min Mar, Temperature 97.9 degrees Fahrenheit Mar, Oximetry 95 Mar, Blood pressure systolic 140 mm Hg Mar, Blood pressure diastolic 80 mm Hg Mar, MEDICATIONS Medication SIG (Take, Route, Frequency, Duration) Start Date En d Date Status Chlorthalidone 25 MG TAKE ONE TABLET BY MOUTH EVERY DAY for 30 Active Mometasone Furoate 0.1 % 1 application Externally Once a day for 30 Days Oct, Active Pantoprazole Sodium 40 MG TAKE ONE TABLET BY MOUTH EVERY DAY for 30 Active Vitamin D 5000 UNIT 1 tablet Orally Once a day Aug, Not-Taking Alprazolam 0.25 MG 1 tablet Orally Twice a day MDD:2 for 30 Active Mirtazapine 30 MG 1 tablet at bedtime Orally Once a day for 30 day( s) Active Lipitor 80 MG 1 tablet Orally Once a day for 90 Active Pen [place] 31G X 6 MM as directed SQ twice a day for 90 day(s) Nov, Active Hydrocortisone 2.5 % 1 application to affected ar ea Externally twice daily as needed for 30 day(s) Mar, Active FreeStyle Lite Test `` 1 each In Vitro DX. E11.65 twice a da y for 90 day(s) January, Active EpiPen 0.3 MG/0.3ML (1:1000) as directed Intramuscular as needed for bee stings for 90 days Mar, Active Lancets lancets lancets ICD:250.02 NIDDM FSBS twice mara y for 90 day(s) Jul, Active Glucose Blood test strips ICD:250.02 NIDDM FSBS twice daily for 90 day(s) Jul, Active Aspirin 325 MG 1 tablet Orally Once a day Active Loprox 0.77 % 1 application Externally Twice a day for 30 Days 13 M 2019 Active CPAP mask as directed CPAP mask, tubin g, reservoir, filters Dx: HIEN for 99 months Dec, Unknown Jardiance 25 mg TAKE ONE TABLET BY MOUTH FERNY RY DAY Orally Once a day for 90 days Active Multivitamins 1 tablet Orally daily Not-T aking Lantus SoloStar 100 UNIT/ML 100 units Subcutaneous every night Active Plavix 75 MG TAKE ONE TABLET BY MOUTH EVERY DAY for 30 Active Remeron 30 mg 1 tab(s) Orally bedtime for 90 Active Coreg 12.5 MG TAKE ONE TABLET BY MOUTH TWI CE A DAY Orally Twice a day for 30 days Active Lantus solo star pen needles _ as directed _ as directed for 30 day(s) Jul, Active Nitroglycerin 0.4 MG/SPRAY 1 puff under the tongue Tra nslingual chest pain directions for 30 day(s) Active Selenium Sulfide 2.25 % 1 application Externally Daily for 7 day(s) Mar, Active Metformin HCl 1000 mg with meals Orally 1& 1/2 in AM//1 in PM for 3 0 Active Ranexa 500 mg 1 tablet Orally Twice a day for 30 Active Losartan Potassium 50 MG TAKE ONE TABLET BY MOUTH EVERY DAY for 30 Active PROCEDURES No Information RESULTS No Results REASON FOR VISIT 5 month, refill xanax, renexa, last fill 02/24/20 istop Reference #: [id number] MEDICAL (GENERAL) HISTORY Type Description Date Medical History [place] Anterolateral 08/22, STEM I s/p thrombolytic and rescue angioplasty w/out stenting Medical History CAD PTCA/Stent 02/18 (Diagonal branch) Medical History Cath 08/22 ([facility]) LAD 60 %, L circumflex 100% stenosis, [...] in [place] and inflat [place] 03/2011 previous [place], no ischemia EF 36%; mNST 12/27: fixed anterolat/anterapical defect, no reversibility, EF 36% Medical History HIEN s/p UPPP on BIPAP Medical History HTN Medical History Hyperlipidemia Medical History Obesity Medical History Ischemic cardiomyopathy Medical History Metabolic Syndrome Medical History Allergic Rhinitis Medical History Vit d defic Surgical History UPPP Surgical History (never had colonoscopy. was scheduled 08/22, had [place] when Plavix was held for procedure, never done). 08/22 Goals Section No Information Health Concerns No Information MEDICAL EQUIPMENT No Information MENTAL STATUS No Information FUNCTIONAL STATUS No Information ASSESSMENTS Encounter Date Diagnosis Notes Mar, Type 2 diabetes mellitus with hyperglyce karlo (ICD-10 - E11.65) Mar, Tinea versicolor (ICD-10 - B36.0) Mar, Atherosclerotic heart diseas e of [place] coronary artery without angina pectoris (ICD-10 - I25.10) Mar, Hypertensive heart disease without heart failure (ICD-10 - I11.9) Mar, Obstructive sleep apnea (adult) (pediatr ic) (ICD-10 - G47.33) Mar, Hyperlipidemia, unspecified (ICD-10 - E7 8.5) Mar, Chronic systolic (congestive) heart fail ure (ICD-10 - I50.22) PLAN OF TREATMENT Medication Medication Name Sig Start Date Stop Date Ranexa 500 mg 1 tablet Orally Twice a day for 30 Losartan Potassium 50 MG TAKE ONE TABLET BY MOUTH EVERY DAY for 30 Metformin HCl 1000 mg with meals Orally 1& 1/2 in AM//1 in PM fo r 30 Selenium Sulfide 2.25 % 1 application Externally Daily for 7 day(s) Mar, Alprazolam 0.25 MG 1 tablet Orally Twice a day MDD:2 for 30 Treatment Notes Assessment Notes Clinical Notes Type 2 diabetes mellitus with hyperglycemia diabetic control adequate with patient-centered goals as discussed with pt. Goal Hg bA1c 7.x is appropriate for this pt. Future Test Test Name Order Date CBC - Complete Blood Count [id number] Comprehensive Metabolic Profile (CMP) 20200806 LIPID PANEL (CARDIAC RISK) [id number] HEMOGLOBIN A1c 20200806 Next Appt Details 4 Months Reason: Provider Name:Kristian Okeefe, 2020-07 03:15:00 PM, [address], [place], [address], Insurance Providers Payer Name Payer Address Payer Phone Insured Name Patient Relati onship to Insured Coverage Start Date Coverage End Date RODOLFO DOMINGUEZ PPO [phone] [facility] [employer] [place] [address] ERICA GREER self
--- OUTSIDE RECORDS SUMMARY | 2020-09-29 13:26 | CCD ---
Author Author [facility]st ems Organization [facility] ems Address Unknown Phone Unavailable Care Team Providers Care Manager Desktop Name Role Phone Kristian Okeefe Unavailable PROBLEMS Type Condition ICD9-CM Code [id number] Code Onset Dates Condition S tatus SNOMED Code Notes Problem Hyperlipidemia, unspecified E78.5 Active 5582 2004 Problem Vitamin D deficiency, unspecified E55.9 Active 51239836 Problem Type 2 diabetes mellitus with hyperglycemia E11.65 Active 528526267443853 Problem Obstructive sleep apnea (adult) (pediatric) G47.33 Active 74026654 Problem Atherosclerotic heart diseas e of [place] coronary artery without angina pectoris I25.10 Active 413057611581698 Problem Major depressive disorder, single episode, unspecified F32.9 Active 40118693 Problem Hypertensive heart disease without heart failure I 11.9 Active 25146204 Problem Generalized anxiety disorder F41.1 Active 218 99374 Problem Encounter for screening for malignant neoplasm of prostate Z12.5 Active 586246816 Problem Primary generalized (osteo)arthritis M15.0 Act leilani 601448577 Problem Gastro-esophageal reflux disease without esophagitis K21.9 Active 012418936 Problem Chronic systolic (congestive) heart failure I50.22 Active 909424471 ALLERGIES Allergen (clinical drug ingredient) Drug/Non Drug Allergy do cumented on EMR Reaction Allergy Type Onset Date Status bee stings Unknown Non Drug Allergy Active ENCOUNTERS from 1960 to 2020-09-13 Encounter Location Date Provider Diagnosis [address] [place] [address] Aug, Kwan Okeefe Tinea versicolor B36.0 ; Type 2 diabetes mellitus with hyperglycemia E11.65 ; Hypertensive heart disease without heart failure I11.9 ; Atherosclerotic heart disease of [place] coronary artery without angina pectoris I25.10 ; [...] Education Language: Question Answer Notes Languages spoken: Irish Sexual Hx: Question Answer Notes Had sex [...] 100 units Subcutaneous every night Active Pen [place] 31G X 6 MM as directed SQ [...] Information RESULTS No Results REASON FOR VISIT our r/s. pt requested MEDICAL (GENERAL) HISTORY Type Description Date Medical History [place] Anterolateral 08/22, STEM I s/p thrombolytic and rescue angioplasty w/out stenting Medical History CAD PTCA/Stent 02/18 (Diagonal branch) Medical History Cath 08/22 ([facility] [place] [facility]) LAD 60 %, L circumflex 100% stenosis, [...] in [place] and [place]at [place] 03[place]2011 previous [place], no ischemia EF 36%; mNST 12/27: fixed anterolat/anterapical defect, no reversibility, EF 36% Medical History HIEN s/p UPPP on BIPAP Medical History HTN Medical History Hyperlipidemia Medical History Obesity Medical History Ischemic cardiomyopathy Medical History Metabolic Syndrome Medical History Allergic Rhinitis Medical History Vit d defic Surgical History UPPP Surgical History (never had colonoscopy. was scheduled 08/22, had [place] when Plavix was held for procedure, never done). 08/22 Goals Section No Information Health Concerns No Information MEDICAL EQUIPMENT No Information MENTAL STATUS No Information FUNCTIONAL STATUS No Information ASSESSMENTS Encounter Date Diagnosis Assessment Notes Treatment Notes Treatm ent Clinical Notes Aug, Tinea versicolor (ICD-10 - B36.0) Aug, Type 2 diabetes mellitus with hyperglycemia (ICD -10 - E11.65) diabetic control adequate with patient-centered goals as discussed with pt. Goal Hg bA1c 7.x is appropriate for this pt. Aug, Hypertensive heart disease without heart failure (ICD-10 - I11.9) Aug, Atherosclerotic heart diseas e of [place] coronary artery without angina pectoris (ICD-10 - I25.10) Aug, Hyperlipidemia, unspecified (ICD-10 - E78.5) Aug, Obstructive sleep apnea (adult) (pediatric) (ICD -10 - G47.33) Aug, Chronic systolic (congestive) heart failure (ICD -10 - I50.22) PLAN OF TREATMENT Medication Medication Name Sig Start Date Stop Date Metformin HCl 1000 mg with meals Orally 1& 1/2 in AM//1 in PM fo r 30 Ranexa 500 mg 1 tablet Orally Twice a day for 30 Selenium Sulfide 2.25 % 1 application Externally Daily for 7 day (s) Treatment Notes Assessment Notes Clinical Notes Type 2 diabetes mellitus with hyperglycemia diabetic control adequate with patient-centered goals as discussed with pt. Goal Hg bA1c 7.x is appropriate for this pt. Future Test Test Name Order Date Comprehensive Metabolic Profile (CMP) [id number] HEMOGLOBIN A1c 20201113 LIPID PANEL (CARDIAC RISK) [id number] CBC - Complete Blood Count [id number] Next Appt Details Early November, needs end of day Wednesdays Reason: Provider Name:Kristian Okeefe, 2020-10 03:45:00 PM, [address], [place], [address], Insurance Providers Payer Name Payer Address Payer Phone Insured Name Patient Relati onship to Insured Coverage Start Date Coverage End Date BCBS LORI DOMINGUEZ O [id number] [facility] [place] [address] ERICA GREER self
--- OUTSIDE RECORDS SUMMARY | 2020-09-29 13:26 | CCD ---
Author Author [facility] Syst ems Organization [facility] ems Address Unknown Phone Unavailable Care Team Providers Care Animal Care Assistant Name Role Phone RonitbamKristian Unavailable PROBLEMS Type Condition ICD9-CM Code [id number] Code Onset Dates Condition S tatus SNOMED Code Notes Problem Hyperlipidemia, unspecified E78.5 Active 5582 2004 Problem Vitamin D deficiency, unspecified E55.9 Active 39847383 Problem Type 2 diabetes mellitus with hyperglycemia E11.65 Active 973715792501450 Problem Obstructive sleep apnea (adult) (pediatric) G47.33 Active 27662633 Problem Atherosclerotic heart diseas e of [place] coronary artery without angina pectoris I25.10 Active 288013514447316 Problem Major depressive disorder, single episode, unspecified F32.9 Active 15727532 Problem Hypertensive heart disease without heart failure I 11.9 Active 45953664 Problem Generalized anxiety disorder F41.1 Active 218 01606 Problem Encounter for screening for malignant neoplasm of prostate Z12.5 Active 378656535 Problem Primary generalized (osteo)arthritis M15.0 Act leilani 822972684 Problem Gastro-esophageal reflux disease without esophagitis K21.9 Active 652498214 Problem Chronic systolic (congestive) heart failure I50.22 Active 455704473 ALLERGIES Allergen (clinical drug ingredient) Drug/Non Drug Allergy do cumented on EMR Reaction Allergy Type Onset Date Status bee stings Unknown Non Drug Allergy Active ENCOUNTERS from 1960 to 2020-08-31 Encounter Location Date Provider Diagnosis [address] [place] [address] 16 Aug, 2020 Kwan Okeefe IMMUNIZATIONS Vaccine Route Administration Date Status Pneumococcal [...] Education Language: Question Answer Notes Languages spoken: Korean Sexual Hx: Question Answer Notes Had sex [...] Notes Start Da te End Date Status Pantoprazole Sodium 40 MG TAKE ONE TABLET BY MOUTH EVERY DAY for 30 Active Coreg 12.5 MG TAKE ONE TABLET BY MOUTH TWI CE A DAY Orally Twice a day for 30 days Active Mometasone Furoate 0.1 % 1 application Externally Once a day for 30 Days Oct, Active Lantus SoloStar 100 UNIT/ML 100 units Subcutaneous every night Active EpiPen 0.3 MG/0.3ML (1:1000) as directed Intramuscular as needed for bee stings for 90 days Mar, Active Jardiance 25 mg TAKE ONE TABLET BY MOUTH FERNY RY DAY Orally Once a day for 90 days Active Chlorthalidone 25 MG TAKE ONE TABLET BY MOUTH EVERY DAY for 30 Active Lantus solo star pen needles _ as directed _ as directed for 30 day(s) Jul, Active Remeron 30 mg 1 tab(s) Orally bedtime for 90 Active Selenium Sulfide 2.25 % 1 application Externally Daily for 7 day (s) Mar, Active Hydrocortisone 2.5 % 1 application to affected ar ea Externally twice daily as needed for 30 day(s) Mar, Active Glucose Blood test strips ICD:250.02 NIDDM FSBS twice daily for 90 day(s) Jul, Active Ranexa 500 mg 1 tablet Orally Twice a day for 30 Active Lipitor 80 MG 1 tablet Orally Once a day for 90 Active FreeStyle Lite Test `` 1 each In Vitro DX. E11.65 twice a day fo r 90 day(s) January, Active Metformin HCl 1000 mg with meals Orally 1& 1/2 in AM//1 in PM for 30 Active Nitroglycerin 0.4 MG/SPRAY 1 puff under the tongue Tra nslingual chest pain directions for 30 day(s) Active Alprazolam 0.25 MG 1 tablet Orally Twice a day MDD:2 for 30 Active Mirtazapine 30 MG 1 tablet at bedtime Orally Once a day for 30 day(s) Active Pen [place] 31G X 6 MM as directed SQ twice a day for 90 day(s) Nov, Active Aspirin 325 MG 1 tablet Orally Once a day Active Losartan Potassium 50 MG TAKE ONE TABLET BY MOUTH EVERY DAY for 30 Active Lancets lancets lancets ICD:250.02 NIDDM FSBS twice daily for 90 day(s) Jul, Active CPAP mask as directed CPAP mask, tubin g, reservoir, filters Dx: HIEN for 99 months Dec, Unknown Vitamin D 5000 UNIT 1 tablet Orally Once a day Aug, 3 Not-Taking Loprox 0.77 % 1 application Externally Twice a day for 30 Days Nov, Active Plavix 75 MG TAKE ONE TABLET BY MOUTH EVERY DAY for 30 Active Multivitamins 1 tablet Orally daily Not-Taking PROCEDURES No Information RESULTS No Results REASON FOR VISIT No Information MEDICAL (GENERAL) HISTORY Type Description Date Medical History [place] Anterolateral 08/22, STEM I s/p thrombolytic and rescue angioplasty w/out stenting Medical History CAD PTCA/Stent 02/18 (Diagonal branch) Medical History Cath 08/[address] [place]) LAD 60 %, L circumflex 100% stenosis, [...] No Information FUNCTIONAL STATUS No Information ASSESSMENTS No Information PLAN OF TREATMENT No Information Insurance Providers Payer Name Payer Address Payer Phone Insured Name Patient Relati onship to Insured Coverage Start Date Coverage End Date BCKENY DOMINGUEZ PPO [phone] [facility] [place] [address] REICA GREER self
--- OUTSIDE RECORDS SUMMARY | 2020-09-29 13:26 | CCD ---
Author Author [facility] Syst ems Organization [facility] ems Address Unknown Phone Unavailable Care Team Providers Care Extension Service Supervisor Name Role Phone RonitbamKristian Unavailable PROBLEMS Type Condition ICD9-CM Code [id number] Code Onset Dates Condition S tatus SNOMED Code Notes Problem Hyperlipidemia, unspecified E78.5 Active 5582 2004 Problem Vitamin D deficiency, unspecified E55.9 Active 03564126 Problem Type 2 diabetes mellitus with hyperglycemia E11.65 Active 645924097379756 Problem Obstructive sleep apnea (adult) (pediatric) G47.33 Active 00061756 Problem Atherosclerotic heart diseas e of [place] coronary artery without angina pectoris I25.10 Active 540538482989700 Problem Major depressive disorder, single episode, unspecified F32.9 Active 14334320 Problem Hypertensive heart disease without heart failure I 11.9 Active 33671820 Problem Generalized anxiety disorder F41.1 Active 218 18486 Problem Encounter for screening for malignant neoplasm of prostate Z12.5 Active 702947945 Problem Primary generalized (osteo)arthritis M15.0 Act leilani 774316501 Problem Gastro-esophageal reflux disease without esophagitis K21.9 Active 183573330 Problem Chronic systolic (congestive) heart failure I50.22 Active 487808893 ALLERGIES Allergen (clinical drug ingredient) Drug/Non Drug Allergy do cumented on EMR Reaction Allergy Type Onset Date Status bee stings Unknown Non Drug Allergy Active ENCOUNTERS from 1960 to 2020-08-17 Encounter Location Date Provider Diagnosis [place] [id number] [place] [address] Aug, Kwan Okeefe IMMUNIZATIONS Vaccine Route Administration Date [...] Education Language: Question Answer Notes Languages spoken: Azeri Sexual Hx: Question Answer Notes Had sex [...] Notes Start Da te End Date Status Lipitor 80 MG 1 tablet Orally Once a day for 90 Active Mometasone Furoate 0.1 % 1 application Externally Once a day for 30 Days Oct, Active Pantoprazole Sodium 40 MG TAKE ONE TABLET BY MOUTH EVERY DAY for 30 Active Vitamin D 5000 UNIT 1 tablet Orally Once a day Aug, 3 Not-Taking FreeStyle Lite Test `` 1 each In Vitro DX. E11.65 twice a day fo r 90 day(s) January, Active Mirtazapine 30 MG 1 tablet at bedtime Orally Once a day for 30 day(s) Active Alprazolam 0.25 MG 1 tablet Orally Twice a day MDD:2 for 30 Active Pen [place] 31G X 6 MM as directed SQ twice a day for 90 day(s) Nov, Active Hydrocortisone 2.5 % 1 application to affected ar ea Externally twice daily as needed for 30 day(s) Mar, Active Chlorthalidone 25 MG TAKE ONE TABLET BY MOUTH EVERY DAY for 30 Active EpiPen 0.3 MG/0.3ML (1:1000) as directed Intramuscular as needed for bee stings for 90 days Mar, Active Lancets lancets lancets ICD:250.02 NIDDM FSBS twice daily for 90 day(s) Jul, Active Glucose Blood test strips ICD:250.02 NIDDM FSBS twice daily for 90 day(s) Jul, Active Aspirin 325 MG 1 tablet Orally Once a day Active Loprox 0.77 % 1 application Externally Twice a day for 30 Days Nov, Active CPAP mask as directed CPAP mask, tubin g, reservoir, filters Dx: HIEN for 99 months Dec, Unknown Jardiance 25 mg TAKE ONE TABLET BY MOUTH FERNY RY DAY Orally Once a day for 90 days Active Multivitamins 1 tablet Orally daily Not-Taking Lantus SoloStar 100 UNIT/ML 100 units Subcutaneous [...] Daily for 7 day (s) Mar, Active Metformin HCl 1000 mg with meals Orally 1& 1/2 in AM//1 in PM for 30 Active Ranexa 500 mg 1 tablet Orally Twice a day for 30 Active Losartan Potassium 50 MG TAKE ONE TABLET BY MOUTH EVERY DAY for 30 Active PROCEDURES No Information RESULTS No Results REASON FOR VISIT chlorthalidone 25mg tablet 25 MEDICAL (GENERAL) HISTORY Type Description Date Medical History [place] Anterolateral 08/22, STEM I s/p thrombolytic and rescue angioplasty w/out stenting Medical History CAD PTCA/Stent 02/18 (Diagonal branch) Medical History Cath 08/[address] ([facility] [place]) LAD 60 %, L circumflex 100% stenosis, [...] in [place] and inflat [place] 03/2011 previous [place], no ischemia EF 36%; mNST 12/27: fixed anterolat/anterapical defect, no reversibility, EF 36% Medical History HIEN s/p UPPP on BIPAP Medical History HTN Medical History Hyperlipidemia Medical History Obesity Medical History Ischemic cardiomyopathy Medical History Metabolic Syndrome Medical History Allergic Rhinitis Medical History Vit d defic Surgical History UPPP Surgical History (never had colonoscopy. was scheduled 08/22, had [place] when Plavix was held for procedure, never done). 08/22 Goals Section No Information Health Concerns No Information MEDICAL EQUIPMENT No Information MENTAL STATUS No Information FUNCTIONAL STATUS No Information ASSESSMENTS No Information PLAN OF TREATMENT Medication Medication Name Sig [...] Orally Twice a day MDD:2 for 30 Pantoprazole Sodium 40 MG TAKE ONE TABLET BY MOUTH EVERY DAY for 30 Chlorthalidone 25 MG TAKE ONE TABLET BY MOUTH EVERY DAY for 30 Next Appt Details Provider Name:Kristian Cottrellfinnarnulfo, 2020-08 03:45:00 PM, [address], [place], [address], Insurance Providers Payer Name Payer Address Payer Phone Insured Name Patient Relati onship to Insured Coverage Start Date Coverage End Date KENY DOMINGUEZ PPO [phone] [facility] [employer] [place] [address] ERICA GREER
--- OUTSIDE RECORDS SUMMARY | 2020-09-29 14:08 | CCD ---
Author Author [facility] Organization [facility] Address Unknown Phone Unavailable Care Team Providers Care Dynamicist Name Role Phone Rachid Winchester MD, [facility] Unavailable Unavailable GabRachid ba MD, [facility] Unavailable Unavailable GabRachid ba MD, [facility] Unavailable Unavailable GabRachid ba MD, [facility] Unavailable Unavailable GabRachid ba MD, [facility] Unavailable Unavailable GabRachid ba MD, [facility] Unavailable Unavailable GabRachid ba MD, [facility] Unavailable Unavailable GabRachid ba MD, [facility] Unavailable Unavailable GabRachid ba MD, [facility] Unavailable Unavailable GabRachid ba MD, [facility] Unavailable Unavailable GabRachid ba MD, [facility] Unavailable Unavailable GabRachid ba MD, [facility] Unavailable Unavailable GabRachid ba MD, [facility] Unavailable Unavailable GabRachid ba MD, [facility] Unavailable Unavailable GabRachid ba MD, [facility] Unavailable Unavailable Gabris, Rachid Bruner MD, [facility] Unavailable Unavailable Gabris, Rachid Bruner MD, [facility] Unavailable Unavailable Gabris, Rachid Bruner MD, [facility] Unavailable Unavailable Gabris, Rachid Bruner MD, [facility] Unavailable Unavailable Gabris, Rachid Bruner MD, [facility] Unavailable Unavailable Gabris, Rachid Bruner MD, [facility] Unavailable Unavailable Gabris, Rachid Bruner MD, [facility] Unavailable Unavailable Gabris, Rachid Bruner MD, [facility] Unavailable Unavailable Gabris, Rachid Bruner MD, [facility] Unavailable Unavailable Gabris, Rachid Bruner MD, [facility] Unavailable Unavailable Gabris, Rachid Bruner MD, [facility] Unavailable Unavailable Gabris, Rachid Bruner MD, [facility] Unavailable Unavailable Gabris, Rachid Bruner MD, [facility] Unavailable Unavailable Gabris, Rachid Bruner MD, [facility] Unavailable Unavailable Gabris, Rachid Bruner MD, [facility] Unavailable Unavailable Gabris, Rachid Bruner MD, [facility] Unavailable Unavailable Gabris, Rachid Bruner MD, [facility] Unavailable Unavailable Gabris, Rachid Bruner MD, [facility] Unavailable Unavailable Gabris, Rachid Bruner MD, [facility] Unavailable Unavailable Gabris, aRchid Bruner MD, [facility] Unavailable Unavailable Gabris, Rachid Bruner MD, [facility] Unavailable Unavailable Gabris, Rachid Bruner MD, [facility] Unavailable Unavailable Gabris, Rachid Bruner MD, [facility] Unavailable Unavailable Gabris, Rachid Bruner MD, [facility] Unavailable Unavailable Gabris, Rachid Bruner MD, [facility] Unavailable Unavailable Gabris, Rachid Bruner MD, [facility] Unavailable Unavailable Gabris, Rachid Bruner MD, [facility] Unavailable Unavailable Gabris, Rachid Bruner MD, [facility] Unavailable Unavailable Gabris, Rachid Bruner MD, [facility] Unavailable Unavailable Gabris, Rachid Bruner MD, [facility] Unavailable Unavailable Gabris, Rachid Bruner MD, [facility] Unavailable Unavailable Gabris, Rachid Bruner MD, [facility] Unavailable Unavailable Gabris, Rachid Bruner MD, [facility] Unavailable Unavailable Gabris, Rachid Bruner MD, [facility] Unavailable Unavailable Gabris, Rachid Bruner MD, [facility] Unavailable Unavailable Gabris, Rachid Bruner MD, [facility] Unavailable Unavailable Gabris, Rachid Bruner MD, [facility] Unavailable Unavailable Gabris, Rachid Bruner MD, [facility] Unavailable Unavailable Gabris, Rachid Bruner MD, [facility] Unavailable Unavailable Gabris, Rachid Bruner MD, [facility] Unavailable Unavailable Gabris, Rachid Bruner MD, [facility] Unavailable Unavailable Gabris, Rachid Bruner MD, [facility] Unavailable Unavailable Gabris, Rachid Bruner MD, [facility] Unavailable Unavailable Gabris, Rachid Bruner MD, [facility] Unavailable Unavailable Gabris, Rachid Bruner MD, FACC Unavailable Unavailable Gabris, Rachid Bruner MD, FACC Unavailable Unavailable Gabris, Rachid Bruner MD, FACC Unavailable Unavailable Gabris, Rachid Bruner MD, FAC Unavailable Unavailable Gabris, Rachid Bruner MD, FAC Unavailable Unavailable Gabris, Rachid Bruner MD, FAC Unavailable Unavailable Gabris, Rachid Bruner MD, FACC Unavailable Unavailable Gabris, Rachid Bruner MD, FAC Unavailable Unavailable RolizabellaeErmelindaChristina RN Unavailable Unavailable RolinceErmelindaChristina RN Unavailable Unavailable RolinceErmelindaChristina RN Unavailable Unavailable RolinceErmelindaChristina RN Unavailable Unavailable RolinceErmelindaChristina RN Unavailable Unavailable RolinceErmelindaChristina RN Unavailable Unavailable RolinceErmelindaChristina RN Unavailable Unavailable RolinceErmelindaChristina RN Unavailable Unavailable RolinceErmelindaChristina RN Unavailable Unavailable RolinceErmelindaChristina RN Unavailable Unavailable RolinceErmelindaChristina RN Unavailable Unavailable RolinceErmelinda RN Unavailable Unavailable RolinceErmelindaChristina RN Unavailable Unavailable RolinceErmelindaChristina RN Unavailable Unavailable RolinceErmelindaChristina RN Unavailable Unavailable StefaninceErmelinda RN Unavailable Unavailable PaolaeErmelinda RN Unavailable Unavailable WetterKristian kuhn MD Unavailable Unavailable WetterhahnKristian MD Unavailable Unavailable WetterhaKristian arredondo MD Unavailable Unavailable WetterhaKristian arredondo MD Unavailable Unavailable WetterhahnKristian MD Unavailable Unavailable WetterhahnKristian MD Unavailable Unavailable WetterhahnKristian MD Unavailable Unavailable WetterhahnKristian MD Unavailable Unavailable WetterhaKristian arredondo MD Unavailable Unavailable WetterhaKristian arredondo MD Unavailable Unavailable WetterhaKristian arredondo MD Unavailable Unavailable WetterhahnKristian MD Unavailable Unavailable WetterhahnKristian MD Unavailable Unavailable WetterhahnKristian MD Unavailable Unavailable WetterhahnKristian MD Unavailable Unavailable WetterhahnKristian MD Unavailable Unavailable WetterhaKristian arredondo MD Unavailable Unavailable WetterhaKristian arredondo MD Unavailable Unavailable WetterhaKristian arredondo MD Unavailable [...] Wetterhahn, Kristian MARADIAGA Unavailable Unavailable Wetterhahn, Kristian MARADAIGA Unavailable Unavailable Wetterhahn, Kristian MARADIAGA Unavailable Unavailable Wetterhahn, Kristian MARADIAGA Unavailable Unavailable Wetterhahn, Kristian MARADIAGA Unavailable Unavailable Wetterhahn, Kristian MARADIAGA Unavailable Unavailable Wetterhahn, Kristian MARADIAGA Unavailable Unavailable Wetterhahn, Kristian MARADIAGA Unavailable Unavailable Wetterhahn, Kristain MARADIAGA Unavailable Unavailable Wetterhahn, Kristian MARADIAGA Unavailable [...] is protected by Article 27-F of the [facility] Public Health law. If you continue you may have access to information: Regarding HIV / AIDS; Provided by facilities licensed or operated by the [facility] Office of Mental Health; or Provided by the [facility] Office for People With Developmental Disabilities. If such information is present, then the following [facility] mandated warning applies: This information [...] law may result in a fine or usp sentence or both. A general authorization for the release of medical or other information is NOT sufficient authorization for further disc losure. Allergies and Adverse Reactions Type Description Substance Reaction Status Data Source(s ) bee stings bee stings bee stings Unknown Active eCW1 ([facility]) Encounters Encounter Providers Location Date Indications Data Source(s ) Outpatient Attender: Kristian Okeefe MD 09/25/2020 01:51:00 PM EST covid screening referral symp and exposed [facility] covid screening referral symp and expose d Unknown [address] [facility] [address] 09/25/2020 12:00:00 AM EST eCW1 ([facility]) TeleMedicine Est. Pt. Level 3 [address] [place] [address] 09/06/2020 12:00:00 AM EST eCW1 ([facility]) Unknown [address] [facility] [address] 08/30/2020 12:00:00 AM EST eCW1 ([facility]) Unknown [address] [facility] [address] 08/16/2020 12:00:00 AM EST eCW1 ([facility]) Outpatient Attender: Ermelinda Chambers RNAttender: Franc Winchester MD, [facility] [email or web address] 06/30/2020 12:00:00 AM EDT - 06/30/2020 03:49:15 PM EDT [facility] [address] [place] [address] 05/03/2020 12:00:00 AM EDT eCW1 ([facility]) [place] [address] [facility] [address] 04/07/2020 12:00:00 AM EDT eCW1 ([facility]) Outpatient [address] [facility] [place] [address] 04/05/2020 12:00:00 AM EDT eCW1 ([facility]) [place] [address] [facility] [address] 03/27/2020 12:00:00 AM EDT eCW1 ([facility]) Unknown [address] [facility] [address] 02/23/2020 12:00:00 AM EDT eCW1 ([facility]) Outpatient Attender: Franc Wicnhester MD, [facility] [email or web address] 12/31/2019 12:00:00 AM EDT - 12/31/2019 03:13:[address] [facility] [place] [address] [facility] [address] 12/15/2019 12:00:00 AM EDT eCW1 ([facility] [place] [address] [facility] [address] 12/13/2019 12:00:00 AM EDT eCW1 ([facility] [place] [address] [facility] [place] [address] 11/30/2019 12:00:00 AM EDT eCW1 ([facility]) [facility] [place] [address] [facility] [address] 11/25/2019 12:00:00 AM EDT eCW1 ([facility] [place]) [facility] [place] [address] [facility] [address] 11/24/2019 12:00:00 AM EDT eCW1 ([facility]) [facility] Dermatology [address] [place] [address] 10/21/2019 12:00:00 AM EST eCW1 ([facility]) [facility] [address] [facility] [address] 10/21/2019 12:00:00 AM EST eCW1 ([facility]) [facility] [address] [place] [address], [place] [address] 10/20/2019 12:00:00 AM EST eCW1 ([facility]) [facility] [address] [place] [address], [place] [address] 10/20/2019 12:00:00 AM EST eCW1 ([facility]) [address] [address] 10/05/2019 12:00:00 AM EST eCW1 ([facility]) [address] [address] 09/13/2019 12:00:00 AM EST eCW1 ([facility]) [address] [address] 08/23/2019 12:00:00 AM EST eCW1 ([facility]) Medications Medication Brand Name Start Date Product [...] MOUTH EVERY DAY SOLD: 07/23/2020 [facility] 75 mg 05/24/2020 12:00:00 AM [...] AND 1 TABLET EVERY EVENING SOLD: 05/23/2020 [facility] 30 mg 05/03/2020 12:00:00 AM EDT tablet [...] {application} active Selenium Sulfide 2.25 % eCW1 ([facility]) selenium sulfide 22.5 MG/ML Medicated Shampoo Selenium Sulfide 2.25 % Selenium Sulfide 2.25 % 04/05/2020 12:00:00 AM EDT 1.0 {application} active Selenium Sulfide 2.25 % eCW1 ([facility]) selenium sulfide 22.5 MG/ML Medicated Shampoo Selenium Sulfide 2.25 % Selenium Sulfide 2.25 % 04/05/2020 12:00:00 AM EDT 1.0 {application} active Selenium Sulfide 2.25 % eCW1 ([facility]) selenium sulfide 22.5 MG/ML Medicated Shampoo Selenium Sulfide 2.25 % Selenium Sulfide 2.25 % 04/05/2020 12:00:00 AM EDT 1.0 {application} active Selenium Sulfide 2.25 % eCW1 ([facility]) 500 mg 03/22/2020 12:00:00 AM EDT capsule 21 TAKE ONE CAPSULE BY MOUTH EVERY 8 HOURS FOR 7 DAYS TAKE ONE CAPSULE BY MOUTH EVERY 8 HOURS FOR 7 DAYS [facility] 500 mg 03/13/2020 12:00:00 AM EDT capsule 21 TAKE ONE CAPSULE BY MOUTH EVERY 8 HOURS TAKE ONE CAPSULE BY MOUTH EVERY 8 HOURS SOLD: 03/14/2020 [facility] Alprazolam 0.25 MG Oral Tablet [...] TABLET BY MOUTH EVERY DAY SOLD: 03/23/2020 [facility] pantoprazole 40 MG Delayed Release Oral Tablet PANTOPRAZOLE SODIUM 02/16/2020 12:00:00 AM EDT tablet,delayed release (DR/EC) 30 T SRINATH ONE TABLET BY MOUTH EVERY DAY TAKE ONE TABLET BY MOUTH EVERY DAY SOLD: 05/23/2020 [facility] pantoprazole 40 MG Delayed Release [...] MOUTH EVERY DAY SOLD: 07/23/2020 [facility] pantoprazole 40 MG Delayed Release [...] MOUTH EVERY DAY SOLD: 02/17/2020 [facility] atorvastatin 80 MG Oral Tablet ATORVASTATIN [...] TOPICALLY TWICE A DAY SOLD: 01/28/2020 [facility] 0.77 % 12/01/2019 12:00:00 AM EDT cream 30 APPLY TOPICALLY TWICE A DAY APPLY TOPICALLY TWICE A DAY SOLD: 12/03/2019 [facility] ciclopirox 7.7 MG/ML Topical Cream [Loprox] Loprox 0.77 % Lo prox 0.77 % 11/26/2019 12:00:00 AM EDT 1.0 {application} active Loprox 0.77 % eCW1 ([facility]) ciclopirox 7.7 MG/ML Topical Cream [Loprox] Loprox 0.77 % Lo prox 0.77 % 11/26/2019 12:00:00 AM EDT 1.0 {application} active Loprox 0.77 % eCW1 ([facility]) ciclopirox 7.7 MG/ML Topical Cream [Loprox] Loprox 0.77 % Lo prox 0.77 % 11/26/2019 12:00:00 AM EDT active 1 application eCW1 ([facility]) ciclopirox 7.7 MG/ML Topical Cream [Loprox] Loprox 0.77 % Lo prox 0.77 % 11/26/2019 12:00:00 AM EDT active 1 application eCW1 ([facility]) ciclopirox 7.7 MG/ML Topical Cream [Loprox] Loprox 0.77 % Lo prox 0.77 % 11/26/2019 12:00:00 AM EDT 1.0 {application} active Loprox 0.77 % eCW1 ([facility]) ciclopirox 7.7 MG/ML Topical Cream [Loprox] Loprox 0.77 % Lo prox 0.77 % 11/26/2019 12:00:00 AM EDT 1.0 {application} active Loprox 0.77 % eCW1 ([facility]) ciclopirox 7.7 MG/ML Topical Cream [Loprox] Loprox 0.77 % Lo prox 0.77 % 11/26/2019 12:00:00 AM EDT 1.0 {application} active Loprox 0.77 % eCW1 ([facility]) ciclopirox 7.7 MG/ML Topical Cream [Loprox] Loprox 0.77 % Lo prox 0.77 % 11/26/2019 12:00:00 AM EDT 1.0 {application} active Loprox 0.77 % eCW1 ([facility]) ciclopirox 7.7 MG/ML Topical Cream [Loprox] Loprox 0.77 % Lo prox 0.77 % 11/26/2019 12:00:00 AM EDT 1.0 {application} active Loprox 0.77 % eCW1 ([facility]) ciclopirox 7.7 MG/ML Topical Cream [Loprox] Loprox 0.77 % Lo prox 0.77 % 11/26/2019 12:00:00 AM EDT 1.0 {application} active Loprox 0.77 % eCW1 ([facility]) Alprazolam 0.25 MG Oral Tablet ALPRAZOLAM 11/25/2019 12:00:00 AM EDT tablet 60 TAKE ONE TABLET BY MOUTH TWICE A DAY MAXIMUM DAILY DOS E = 2 TAKE ONE TABLET BY MOUTH TWICE A DAY MAXIMUM DAILY DOSE = 2 SOLD: 11/27/2019 [facility] Metformin hydrochloride 1000 MG Oral Tablet 1,000 [...] 03/09/2020 [facility] Nitroglycerin 0.4 MG/ACTUAT Mucosal [place] 400 mcg/spray NITR OGLYCERIN 11/01/2019 12:00:00 AM EST spray,non-aerosol 12 USE 1 SPRAY U NDER THE TONGUE ONCE EVERY 5 MINUTES FOLR 3 DOSES FOR CHEST PAIN USE 1 SPRAY UNDER THE TONGUE ONCE EVERY 5 MINUTES FOLR 3 DOSES FOR CHEST PAIN SOLD: 05/26/[address] [facility] Alprazolam 0.25 MG Oral Tablet ALPRAZOLAM 10/25/2019 12:00:00 AM EST tablet 60 TAKE ONE TABLET BY MOUTH TWICE A DAY MAXIMUM DAILY DOS E = 2 TAKE ONE TABLET BY MOUTH TWICE A DAY MAXIMUM DAILY DOSE = 2 SOLD: 10/25/2019 [facility] 0.1 % 10/21/2019 12:00:00 AM EST ointment 90 APPLY TO AFFECTED AREA(S) ONCE DAILY APPLY TO AFFECTED AREA(S) ONCE DAILY SOLD: 10/23/2019 [facility] mometasone furoate 0.001 MG/MG Topical Ointment Mometa sone Furoate 0.1 % Mometasone Furoate 0.1 % 10/20/2019 12:00:00 AM EST active 1 application eCW1 ([facility]) mometasone furoate 0.001 MG/MG Topical Ointment Mometa sone Furoate 0.1 % Mometasone Furoate 0.1 % 10/20/2019 12:00:00 AM EST 1.0 {application} active Mometasone Furoate 0.1 % eCW1 ([facility]) mometasone furoate 0.001 MG/MG Topical Ointment Mometa sone Furoate 0.1 % Mometasone Furoate 0.1 % 10/20/2019 12:00:00 AM EST 1.0 {application} active Mometasone Furoate 0.1 % eCW1 ([facility]) mometasone furoate 0.001 MG/MG Topical Ointment Mometa sone Furoate 0.1 % Mometasone Furoate 0.1 % 10/20/2019 12:00:00 AM EST 1.0 {application} active Mometasone Furoate 0.1 % eCW1 ([facility]) mometasone furoate 0.001 MG/MG Topical Ointment Mometa sone Furoate 0.1 % Mometasone Furoate 0.1 % 10/20/2019 12:00:00 AM EST 1.0 {application} active Mometasone Furoate 0.1 % eCW1 ([facility]) mometasone furoate 0.001 MG/MG Topical Ointment Mometa sone Furoate 0.1 % Mometasone Furoate 0.1 % 10/20/2019 12:00:00 AM EST 1.0 {application} active Mometasone Furoate 0.1 % eCW1 ([facility]) mometasone furoate 0.001 MG/MG Topical Ointment Mometa sone Furoate 0.1 % Mometasone Furoate 0.1 % 10/20/2019 12:00:00 AM EST 1.0 {application} active Mometasone Furoate 0.1 % eCW1 ([facility]) mometasone furoate 0.001 MG/MG Topical Ointment Mometa sone Furoate 0.1 % Mometasone Furoate 0.1 % 10/20/2019 12:00:00 AM EST 1.0 {application} active Mometasone Furoate 0.1 % eCW1 ([facility]) mometasone furoate 0.001 MG/MG Topical Ointment Mometa sone Furoate 0.1 % Mometasone Furoate 0.1 % 10/20/2019 12:00:00 AM EST 1.0 {application} active Mometasone Furoate 0.1 % eCW1 ([facility]) 500 mg 10/06/2019 12:00:00 AM EST [...] type / Coverage type Policy ID Covered democrat ID Covered democrat's relationship to antunez Policy Antunez Plan Information [facility] O 302/307 [id number] SP [id number] SELF PAY BLUE CROSS [id number] SP [id number] [facility] [id number] SP [id number] [facility] BCBS [id number] [facility] YNE [id number] ANSI-Commercial [id number] ANSI-Commercial [id number] ANSI-Commercial [id number] [employer] [id number] Blue Cross/Shield [id number] ID IDENTIFICATION [id number] Other In surance [id number] [employer] [id number] [employer]ield [id number] ANSI-Commercial [id number] ANSI-Commercial [id number] ANSI-Commercial [id number] ANSI-Commercial [id number] [employer] PI PI ANSI-Commercial [id number] ANSI-Commercial [id number] ANSI-Commercial [id number] ANSI-Commercial [id number] ANSI-Commercial [id number] ANSI-Commercial [id number] [employer]BS [place] PPO 302/307 [id number] SP [id number] ANSI-Commercial [id number] ANSI-Commercial [id number] ANSI-Commercial [id number] ANSI-Commercial [id number] ANSI-Commercial [id number] ANSI-Commercial [id number] ANSI-Commercial [id number] NO FAULT [id number] Adelina [id number] NO FAULT [id number] Adelina [id number] NO FAULT PI PI [employer] [id number] Blue [employer]/Shield [id number] ID IDENTIFICATION [id number] Other In surance [id number] Problems, Conditions, and Diagnoses Code Display Name Description Problem Type Effective Dates Data Source(s) G47.30 Sleep apnea, unspecified Sleep apnea, unspecified Diag nosis 06/30/2020 02:55:39 PM EDT [facility] E11.51 Type 2 diabetes mellitus wit h diabetic peripheral angiopathy without gangrene Type 2 diabetes mellitus with diabetic p Diagnosis 06/30/2020 02:55:39 PM EDT [facility] Z68.41 Body mass index (BMI) 40.0-44.9, adult B casey mass index (BMI)40.0-44.9, adult Diagnosis 06/30/2020 02:55:39 PM EDT [facility] E66.01 Morbid (severe) obesity due to excess ca lories Morbid (severe) obesity due to excess ca Diagnosis 06/30/2020 02:55:39 PM EDT [facility] I10 Essential (primary) hypertension Essential (primary) h ypertension Diagnosis 06/30/2020 02:55:39 PM EDT [facility] I25.10 Atherosclerotic heart diseas e of [place] coronary artery without angina pectoris Atherosclerotic heart disease of [place] Diagnosis 06/30/2020 02:55:39 PM EDT [facility] R07.9 Chest pain, unspecified Chest pain, unspecified Diagno sis 06/30/2020 02:55:39 PM EDT [facility] E78.5 Hyperlipidemia, unspecified Hyperlipidemia, unspecifie d Diagnosis 06/30/2020 02:55:39 PM EDT [facility] Results ID Date Data Source [id number] 09/28/2020 10:28:00 AM EST [facility] Patient presents as: Symptomatic COVID Reason PCP CTY Surgery/Appointment Date: na Support person(if yes for who): N Name Value Range Interpretation Code Description Data Jeanine rce(s) Supporting Document(s) COVID 19 Detected Not Detected A [place] [employer] This nucleic acid amplification test wa s developed and its performance characteristics determined by [employer]. Nucleic acid amplification tests include PCR and [...] detected) result in this assay. Performed at: - [facility] [id number] [facility] [employer] Rental Clerk: Sabra Morocho MD, Phone: [phone] Faxed result to [facility] and [facility]. Released result. Please call laboratory with further questions. ID Date Data Source [id number] 07/26/2020 02:38:01 PM EST Laboratory Al liance [...] 12.9 % (10.5-14.5) Laboratory [facility] of [place] - CORE PLT 196 10*3/uL (150-450) Laboratory [facility] e of [place] - CORE MPV 9.0 fL (7.1-10.7) Laboratory [place] of [place] GAGE ID Date Data Source [id number] 07/26/2020 03:27:56 PM EST Laboratory Al liance of [place] - CORE Name Value Range Interpretation Code Description Data Jeanine rce(s) Supporting Document(s) HEMOGLOBIN A1C @ 8.2 % (4.0-6.0) H Laboratory [facility] of [place] - CORE Performed using Siemens [place] immunoassa y.Care must be taken when interpreting [id number] in patients with a hemoglobin variantor decreased erythrocyte lifespan. Values 5.7 - 6.4% suggest prediabetes.Values >=6.5% are diagnostic for diabetes.REFERENCE: DIABETES CARE 2018: 41(S13-S27). EST AVERAGE GLUCOSE 189 mg/dL Laboratory [place] of [place]ARI ID Date Data Source [id number] 07/26/2020 03:35:58 PM EST Laboratory [facility] of [place] - [place] Name Value Range Interpretation Code Description Data Jeanine rce(s) Supporting Document(s) SODIUM 139 mmol/L (136-145) Laboratory [place] of [place] - CORE POTASSIUM 3.5 mmol/L (3.6-5.2) L Laboratory [place] of [place] - CORE CHLORIDE 103 mmol/L (100-108) Laboratory [place] of [place] - CORE CO2 29 mmol/L (22-31) Laboratory [place] of [place] - CORE ANION GAP 7 mmol/L (7-16) Laboratory [place] of [facility] - CORE UREA NITROGEN 15 mg/dL (7-24) Laboratory Allia n[facility] of [place] - CORE CREATININE 0.92 mg/dL (0.80-1.30) Laboratory [facility] of [place] - CORE BUN/CREAT RATIO 16.3 RATIO (10.0-20.0) Laboratory [place] of [facility] - CORE GLUCOSE 110 mg/dL (70-99) H Laboratory [place] of [facility] - CORE CALCIUM 8.6 mg/dL (8.4-10.2) Laboratory [place] of [facility] - CORE TOTAL PROTEIN 6.8 g/dL (6.4-8.2) Laboratory Allia nce of [employer] - CORE ALBUMIN 3.8 g/dL (3.5-4.6) Laboratory [place] of [employer] GLOBULIN 3.0 g/dL (2.7-4.3) Laboratory [place] of [employer] - CORE ALB/GLOB RATIO 1.3 RATIO Laboratory [facility] of [employer] [facility] ALKALINE PHOSPHATASE 62 U/L (45-117) Laborator y [place] of [employer] - CORE BILIRUBIN,TOTAL 0.5 mg/dL (0.0-1.0) Laboratory [facility] of [facility] PLEASE NOTE:Total bilirubin results may be falselyelevated in patients taking Eltrombopag. AST (SGOT) 20 U/L (11-39) Laboratory [place] of [employer] [place] ALT (SGPT) 46 U/L (12-78) Laboratory [place] of [employer] GFR >60 ml/min/1.73m2 (>59) Laboratory [facility] of [employer] - CORE GFR ( AMER) >60 ml/min/1.73m2 (>59) Laboratory [place] of [facility] GFR INTERPRETATION Laboratory [place] of [employer] CORE --NORMAL KIDNEY FUNCTION OR MILD DISEASE - GFR >OR= 60CHRONIC KIDNEY DISEASE - GFR 15 - 59RENAL FAILURE - GFR <15 Est. GFR calculation based on the MDRDstudy equation, which assumes a steadystate for creatinine. Est. GFR should notbe used for medication dosing. ID Date Data Source [id number] 07/26/2020 03:35:58 PM EST Laboratory [facility] of [facility] Name Value Range Interpretation Code Description Data Jeanine rce(s) Supporting Document(s) CHOLESTEROL @ 107 mg/dL (0-200) Laboratory [facility] of [employer] TRIGLYCERIDE @ 104 mg/dL (30-200) Laboratory [facility] of [employer] - CORE FASTING HDL CHOLESTEROL @ 35 mg/dL (>40) L Laboratory [facility] of [employer] - CORE PER NCEP ATP III GUIDELINES:RESULTS LOWE R THAN 40 MG/DL ARE SUGGESTIVEOF INCREASED RISK FOR CORONARY ARTERYDISEASE. RESULTS > OR = TO 60 MG/DL ARECONSIDERED A NEGATIVE RISK FACTOR. CHOL/HDL RATIO 3.1 RATIO Laboratory [facility] [facility] of [place] - CORE INTERPRETATION OF CHOL-HDL RATIO CHD RISK FEMALE MALEVERY HIGH >8.3 >14.3HIGH 5.6- 8.3 6.7- 14.3AVERAGE 3.7- 5.6 4.0- 6.7BELOW AVERAGE 2.5- 3.7 2.7- 4.0PROTECTED <2.5 <2.7 LDL CHOL (CALC) 51 mg/dL (<130) Laboratory [facility] of [place] - CORE PER NCEP ATP III GUIDELINES: OPTIMAL < 100 NEAR OPTIMAL 100 - 129BORDERLINE HIGH 130 - 159 HIGH 160 - 189 VERY HIGH > 189 ID Date Data Source [id number] 03/31/2020 11:04:32 AM EDT Laboratory [facility] of [employer] - CORE Name Value Range Interpretation Code Description Data Jeanine rce(s) Supporting Document(s) SODIUM 140 mmol/L (136-145) Laboratory [place] of [employer] - CORE POTASSIUM 3.7 mmol/L (3.6-5.2) Laboratory [place] of [place] - CORE CHLORIDE 103 mmol/L (100-108) Laboratory [place] of [place] - CORE CO2 29 mmol/L (22-31) Laboratory [place] of [place] - CORE ANION GAP 8 mmol/L (7-16) Laboratory [place] of [place] - CORE UREA NITROGEN 18 mg/dL (7-24) Laboratory [facility] of [place] - CORE CREATININE 0.86 mg/dL (0.80-1.30) Laboratory [facility] of [place] - CORE BUN/CREAT RATIO 20.9 RATIO (10.0-20.0) H Laboratory [place] of [place] - CORE GLUCOSE 131 mg/dL (70-99) H Laboratory [place] of [place] - CORE CALCIUM 8.7 mg/dL (8.4-10.2) Laboratory [place] of [place] - CORE GFR >60 ml/min/1.73m2 (>59) Laboratory [facility] of [place] - CORE GFR ( AMER) >60 ml/min/1.73m2 (>59) Laboratory [place] of [place] - CORE GFR INTERPRETATION Laboratory [place] of [place] - CORE --NORMAL KIDNEY FUNCTION OR MILD DISEASE - GFR >OR= 60CHRONIC KIDNEY DISEASE - GFR 15 - 59RENAL FAILURE - GFR <15 Est. GFR calculation based on the MDRDstudy equation, which assumes a steadystate for creatinine. Est. GFR should notbe used for medication dosing. ID Date Data Source [id number] 03/31/2020 11:23:21 AM EDT Laboratory [facility] of [facility] [place] Name Value Range Interpretation Code Description Data Jeanine rce(s) Supporting Document(s) ALBUMIN, URINE 0.60 mg/dL Laboratory [facility] [place] CREATININE,URINE 34.30 mg/dL Laboratory [place] [facility] ALB/CREATININE RATIO 17.5 ug/mg (0.0-29.9) [facility] ID Date Data Source [id number] 03/31/2020 11:37:39 AM EDT Laboratory [facility] [employer] [place] Name Value Range Interpretation Code Description Data Jeanine rce(s) Supporting Document(s) HEMOGLOBIN A1C @ 7.7 % (4.0-6.0) H Laboratory [facility] of [facility] Performed using Siemens [place] immunoassa y.Care must be taken when interpreting [id number] in patients with a hemoglobin variantor decreased erythrocyte lifespan. Values 5.7 - 6.4% suggest prediabetes.Values >=6.5% are diagnostic for diabetes.REFERENCE: DIABETES CARE 2018: 41(S13-S27). EST AVERAGE GLUCOSE 174 mg/dL Laboratory [place] of [employer] [place] ID Date Data Source [id number] 10/13/2019 10:00:45 AM EST Laboratory [facility] of [place] Name Value Range Interpretation Code Description Data Jeanine rce(s) Supporting Document(s) WBC 11.1 10*3/uL (4.1-11.0) H Laboratory [facility] of [place] RBC 4.74 10*6/uL (4.60-6.10) Laboratory [facility] of [place] - CORE HGB 14.5 g/dL (13.5-18.0) Laboratory [facility] of [place] - CORE HCT 42.2 % (41.0-53.0) Laboratory [facility] of [place] - CORE MCV 89.1 fL (80.0-95.0) Laboratory [facility] of [place] - CORE MCH 30.6 pg (27.0-32.0) Laboratory [facility] of [place] - CORE MCHC 34.4 g/dL (32.0-36.0) Laboratory [facility] of [place] - CORE RDW 13.0 % (10.5-14.5) Laboratory [facility] of [place] - CORE PLT 205 10*3/uL (150-450) Laboratory [facility] of [place] - CORE MPV 8.8 fL (7.1-10.7) Laboratory [place] of [place] - CORE ID Date Data Source [id number] 10/13/2019 10:27:44 AM EST Laboratory [facility] of [place] - CORE Name Value Range Interpretation Code Description Data Jeanine rce(s) Supporting Document(s) SODIUM 142 mmol/L (136-145) Laboratory [place] of [place] - CORE POTASSIUM 3.8 mmol/L (3.6-5.2) Laboratory [place] of [facility] - CORE CHLORIDE 104 mmol/L (100-108) Laboratory [place] of [place] - CORE CO2 33 mmol/L (22-31) H Laboratory [place] of [place] - CORE ANION GAP 5 mmol/L (7-16) L Laboratory [place] of [place] - CORE UREA NITROGEN 15 mg/dL (7-24) Laboratory [facility] of [place] - CORE CREATININE 0.95 mg/dL (0.80-1.30) Laboratory [facility] of [place] - CORE BUN/CREAT RATIO 15.8 RATIO (10.0-20.0) Laboratory [place] of [place] - CORE GLUCOSE 140 mg/dL (70-99) H Laboratory [place] of [place] - CORE CALCIUM 8.5 mg/dL (8.4-10.2) Laboratory [place] of [facility] - CORE TOTAL PROTEIN 6.6 g/dL (6.4-8.2) Laboratory [facility] of [place] - CORE ALBUMIN 3.7 g/dL (3.5-4.6) Laboratory [place] of [employer] GLOBULIN 2.9 g/dL (2.7-4.3) Laboratory [place] of [employer] ALB/GLOB RATIO 1.3 RATIO Laboratory [facility] of [employer] ALKALINE PHOSPHATASE 71 U/L (45-117) Laborator y [place] of [employer] - CORE BILIRUBIN,TOTAL 0.5 mg/dL (0.0-1.0) Laboratory [facility] of [employer] AST (SGOT) 21 U/L (11-39) Laboratory [place] of [employer] ALT (SGPT) 43 U/L (12-78) Laboratory [place] of [employer] GFR >60 ml/min/1.73m2 (>59) Laboratory [facility] of [employer] GFR ( AMER) >60 ml/min/1.73m2 (>59) Laboratory [place] of [employer] [place] GFR INTERPRETATION Laboratory [place] of [employer] CORE --NORMAL KIDNEY FUNCTION OR MILD DISEASE - GFR >OR= 60CHRONIC KIDNEY DISEASE - GFR 15 - 59RENAL FAILURE - GFR <15 Est. GFR calculation based on the MDRDstudy equation, which assumes a steadystate for creatinine. Est. GFR should notbe used for medication dosing. ID Date Data Source [id number] 10/13/2019 10:27:44 AM EST Laboratory [facility] of [employer] [place] Name Value Range Interpretation Code Description Data Jeanine rce(s) Supporting Document(s) PSA,TOTAL SCREEN @ 0.6 ng/mL (0.0-4.0) Laboratory [place] [facility] IN 20% OF CASES W/ BPH, PSA MAY BE10 NG/ ML OR MORE. SERUM PSACONCENTRATION SHOULD NOT BE INTERPRETEDAS ABSOLUTE EVIDENCE FOR THE PRESENCEOR ABSENCE OF MALIGNANT DISEASE. METHODIS Collusion CHEMILUMINESCENTIMMUNOASSAY (CALIBRATION TRACEABLE 1998,96/668).VALUES OBTAINED WITH DIFFERENT ASSAYMETHODS OR KITS CANNOT BE USEDINTERCHANGEABLY. ID Date Data Source [id number] 10/13/2019 10:27:44 AM EST Laboratory [facility] of [facility] Name Value Range Interpretation Code Description Data Jeanine rce(s) Supporting Document(s) CHOLESTEROL @ 110 mg/dL (0-200) Laboratory [facility]ia n[facility] of [facility] TRIGLYCERIDE @ 92 mg/dL (30-200) Laboratory [facility] of [facility] FASTING HDL CHOLESTEROL @ 34 mg/dL (>40) L Laboratory [facility] of [facility] CORE PER NCEP ATP III GUIDELINES:RESULTS LOWE R THAN 40 MG/DL ARE SUGGESTIVEOF INCREASED RISK FOR CORONARY ARTERYDISEASE. RESULTS > OR = TO 60 MG/DL ARECONSIDERED A NEGATIVE RISK FACTOR. CHOL/HDL RATIO 3.2 RATIO Laboratory [facility] of [facility] INTERPRETATION OF CHOL-HDL RATIO CHD RISK FEMALE MALEVERY HIGH >8.3 >14.3HIGH 5.6- 8.3 6.7- 14.3AVERAGE 3.7- 5.6 4.0- 6.7BELOW AVERAGE 2.5- 3.7 2.7- 4.0PROTECTED <2.5 <2.7 LDL CHOL (CALC) 58 mg/dL (<130) Laboratory [facility] of [facility] PER NCEP ATP III GUIDELINES: OPTIMAL < 100 NEAR OPTIMAL 100 - 129BORDERLINE HIGH 130 - 159 HIGH 160 - 189 VERY HIGH > 189 ID Date Data Source [id number] 10/13/2019 10:28:19 AM EST Laboratory [facility] of [facility] Name Value Range Interpretation Code Description Data Jeanine rce(s) Supporting Document(s) HEMOGLOBIN A1C @ 7.7 % (4.0-6.0) H Laboratory [facility] of [facility] Performed using [employer] [place] immunoassa y.Care must be taken when interpreting [id number] in patients with a hemoglobin variantor decreased erythrocyte lifespan. Values 5.7 - 6.4% suggest prediabetes.Values >=6.5% are diagnostic for diabetes.REFERENCE: DIABETES CARE 2018: 41(S13-S27). EST AVERAGE GLUCOSE 174 mg/dL Laboratory [place] of [facility] Procedure Social History Code Duration Value Status Description Data Source(s ) Smoking 09/06/2020 12:00:00 AM EST Never Smoker completed Never S moker eCW1 ([facility]) Smoking 09/06/2020 12:00:00 AM EST Never Smoker completed Never S moker eCW1 ([facility]) Smoking 04/05/2020 12:00:00 AM EDT Never Smoker completed Never S moker eCW1 ([facility]) Smoking 04/05/2020 12:00:00 AM EDT Never Smoker completed Never S moker eCW1 ([facility]) Smoking 04/05/2020 12:00:00 AM EDT Never Smoker completed Never S moker eCW1 ([facility]) Smoking 04/05/2020 12:00:00 AM EDT Never Smoker completed Never S moker eCW1 ([facility]) Smoking 10/20/2019 12:00:00 AM EST Never Smoker completed Never S moker eCW1 ([facility]) Smoking 10/20/2019 12:00:00 AM EST Never Smoker completed Never S moker eCW1 ([facility]) Vital Signs ID Date Data Source UNK Name Value Range Interpretation Code Description Data Source(s) Diastolic blood pressure 80 mm[Hg] 80 mm[Hg] eCW1 ([facility]) Systolic blood pressure 140 mm[Hg] 140 mm[Hg] e CW1 ([facility]) Body temperature 97.9 [degF] 97.9 [degF] eCW1 ( [facility]) Respiratory rate 18 /min 18 /min eCW1 ([facility]) Heart rate 79 /min 79 /min eCW1 ([facility]) Body mass index (BMI) [Ratio] 33.90 kg/m2 33.90 kg/m2 eCW1 ([facility]) Body height 72 [in_i] 72 [in_i] eCW1 ([facility]) Body weight 250 [lb_av] 250 [lb_av] eCW1 ([facility]) Diastolic blood pressure 74 mm[Hg] 74 mm[Hg] eCW1 ([facility]) Systolic blood pressure 130 mm[Hg] 130 mm[Hg] e CW1 ([facility]) Body temperature 97.7 [degF] 97.7 [degF] eCW1 ( [facility]) Respiratory rate 18 /min 18 /min eCW1 ([facility]) Heart rate 86 /min 86 /min eCW1 ([facility]) Body mass index (BMI) [Ratio] 34.04 kg/m2 34.04 kg/m2 eCW1 ([facility]) Body height 72 [in_us] 72 [in_us] eCW1 ([facility]) Body weight Measured 251 [lb_av] 251 [lb_av] eC W1 ([facility]) Patient Treatment Plan of Care Planned Activity Planned Date Details Description Data Source (s) selenium sulfide 22.5 MG/ML Medicated Shampoo 04/05/2020 12:00:00 A M EDT eCW1 ([facility]) selenium sulfide 22.5 MG/ML Medicated Shampoo 04/05/2020 12:00:00 A M EDT eCW1 ([facility]) selenium sulfide 22.5 MG/ML Medicated Shampoo 04/05/2020 12:00:00 A M EDT eCW1 ([facility]) ciclopirox 7.7 MG/ML Topical Cream [Loprox] 11/26/2019 12:00:00 AM EDT eCW1 ([facility]) ciclopirox 7.7 MG/ML Topical Cream [Loprox] 11/26/2019 12:00:00 AM EDT eCW1 ([facility]) ciclopirox 7.7 MG/ML Topical Cream [Loprox] 11/26/2019 12:00:00 AM EDT eCW1 ([facility]) ciclopirox 7.7 MG/ML Topical Cream [Loprox] 11/26/2019 12:00:00 AM EDT eCW1 ([facility]) mometasone furoate 0.001 MG/MG Topical Ointment 10/20/2019 12:00:00 AM EST eCW1 ([facility]) mometasone furoate 0.001 MG/MG Topical Ointment 10/20/2019 12:00:00 AM EST eCW1 ([facility]) mometasone furoate 0.001 MG/MG Topical Ointment 10/20/2019 12:00:00 AM EST eCW1 ([facility])
[2020-09-29] MEDS ORDERED: METF10004 PO ×2 (15:11)
[2020-09-29] MEDS ORDERED: ATOR80TA59 PO (15:11)
[2020-09-29] MEDS ORDERED: CHLO125TA PO (15:11)
[2020-09-29] MEDS ORDERED: LOSA50TA88 PO (15:11)
[2020-09-29] MEDS ORDERED: CARV12.5 PO (15:11)
[2020-09-29] MEDS ORDERED: MIRT1TAB16 PO (15:11)
[2020-09-29] MEDS ORDERED: RANO500T2 PO (15:11)
[2020-09-29] MEDS ORDERED: PANT40TA29 PO (15:11)
[2020-09-29] MEDS ORDERED: CLOP75TA2 PO (15:11)
[2020-09-29] MEDS ORDERED: LANTINJ4 SC (15:11)
[2020-09-29 16:01] VITALS: BP 126/70
== END 2020-09-29 16:02 | disposition home or self-care (01) ==
LOC: M ED 14:01
DX: U07.1 COVID-19 (principal); E11.9 Type 2 diabetes mellitus without complications; I10 Essential (primary) hypertension; I25.2 Old myocardial infarction; I25.5 Ischemic cardiomyopathy; I25.10 Atherosclerotic heart disease of native coronary artery without angina pectoris; E78.5 Hyperlipidemia, unspecified; G47.33 Obstructive sleep apnea (adult) (pediatric); Z95.5 Presence of coronary angioplasty implant and graft; Z91.030 Bee allergy status; Z79.4 Long term (current) use of insulin; Z79.899 Other long term (current) drug therapy

== ENCOUNTER 2020-09-29 16:22 | Outpatient (CLI) | payer BC ==
--- NOTE | 2020-09-29 15:32 | IPNPDOC ---
Subjective Date Seen The patient was seen on 09/29/20. Subjective Chief Complaint/HPI Mr. Lino 69-year-old male with diabetes mellitus and coronary disease who presents with COVID 19 infection. On 09/23/2020, he started to have congestion. On 09/24/2020, he started to lose taste. He was tested for COVID 19 infection in [place] on 09/25/2020. This morning, 09/29/2020, his primary care provider notified him that he is COVID positive and recommended he presents to the ED for evaluation for monoclonal antibodies. He does have increased risk of further progression due to his medical conditions (CAD, diabetes mellitus, obesity) and age. While in the ED, he did not desaturate with ambulation. When I spoke to him, he was feeling okay. Denied any fevers, chest pain, dyspnea, cough, or an increase in diarrhea. We discussed the risks and benefits of monoclonal antibodies. He was agreeable to receiving monoclonal antibodies and signed consent. The ED had set the patient up for follow up with the [facility] in 2 days and provided a pulse oximeter Past Medical History 1. CAD s/p multiple stents 2. Type II diabetes mellitus with neuropathy 3. GERD 4. Depression 5. HIEN 6. HTN 7. Hyperlipidemia 8. Obesity 9. Ischemic cardiomyopathy 10. Metabolic syndrome 11. Vit D deficiency Past Surgical History 1. T&A 2. Removal of OV uvula Family History Father: History of heart disease Mother: History of diabetes mellitus and heart disease Social History Tobacco use: Former smoker. Smoked from when he was 18 yo to 36 yo and between 1/2 ppd to 2 ppd Alcohol: Occasionally drinks alcohol Recreational drugs: Denies Constitutional: Denies: Chills, Fever Eyes: Denies: Pain, Vision change ENT: Reports: Sore Throat (from wearing mask constantly) Skin: Denies: Rash Pulmonary: Reports: Other Symptoms (congestion); Denies: Dyspnea, Cough Cardiovascular: Denies: Chest Pain Gastrointestinal: Denies: Nausea, Abdominal Pain Genitourinary: Denies: Dysuria Hematologic: Denies: Bruising Psych: Denies: Anxiety, Depression Objective Physical Examination General Exam: Positive: Alert, Cooperative, No Acute Distress Eye Exam: Positive: EOMI; Negative: Sclera icteric ENT Exam: Positive: Atraumatic Neck Exam: Positive: Supple Chest Exam: Positive: Clear to auscultation; Negative: Rales, Rhonchi, Wheezing Heart Exam: Positive: Rate Normal, Regular Rhythm Abdomen Exam: Positive: Normal bowel sounds, Soft; Negative: Tenderness Skin Exam: Positive: Nl turgor and temperature Psych Exam: Positive: Mental status NL, Mood NL Assessment /Plan Assessment Mr. Lino 69-year-old male with diabetes mellitus and coronary disease who presents with COVID 19 infection. He is at risk for progression of the infection given his age and medical comorbidities. Will give monoclonal antibiotics. Planning to use Casirivimab/Imdevimab. He will be monitored afterwards for side effects and then sent home. Planning for outpatient follow up in 2 days with [facility] Plan/VTE VTE Prophylaxis Ordered?: No VTE Exclusion Mechanical Proph: Other (going home) VTE Exclusion Pharmacological: Other (Going home) Plan 1. COVID 19 infection -Due to age, cardiovascular disease, diabetes mellitus, and obesity, he is at risk for progression of the infection -Will infuse Casirivimab/Imdevimab to reduce risk of progression -He will be observed for reactions, and then sent home with a pulse oximeter and follow up with the [facility] clinic in 2 days HARESH SAMUELS DO Sep 29, 2020 15:32
[2020-09-29 16:04] VITALS: BP 138/80
[~2020-09-29 16:22] MED LIST: ALBUTEROL 90 MCG/ACT 8GM HFA INHALER INH PRN; ALBUTEROL SULFATE 2.5 MG/0.5 ML INH NEB SOLN INH PRN; ATOR80TA59 PO; CARV12.5 PO; CHLO125TA PO; CLOP75TA2 PO; EPINEPHrine INJ 1 MG/ML 1ML AMP IM PRN; LANTINJ4 SC; LOSA50TA88 PO; METF10004 PO; MIRT1TAB16 PO; NS 1,000 ML IV SCH; PANT40TA29 PO; RANO500T2 PO; diphenhydrAMINE 50MG/ML VIAL (J1200) IV PRN; methylPREDNISolone 125MG 2ML VIAL IV PRN
[2020-09-29] MEDS ORDERED: CASIRIVIMAB (REGN10933) 1,200 MG, IMDEVIMAB (REGN10987) 1,200 MG in NS 230 ML IV ONE (17:00)
[2020-09-29 17:40] VITALS: BP 137/79
[2020-09-29 18:15] VITALS: BP 136/91
== END 2020-09-29 19:20 ==
LOC: M OPCLI4 16:22 → M 4MAIN 18:24 → M OPCLI4 19:20
PROVIDERS: ATTEND Internal Medicine
DX: U07.1 COVID-19 (principal); Z91.030 Bee allergy status

== ENCOUNTER → 2021-06-27 | Outpatient (REF) | payer BC ==
[~2021-06-27] MED LIST changes: -ALBUTEROL 90 MCG/ACT 8GM HFA INHALER INH PRN; -ALBUTEROL SULFATE 2.5 MG/0.5 ML INH NEB SOLN INH PRN; -EPINEPHrine INJ 1 MG/ML 1ML AMP IM PRN; -NS 1,000 ML IV SCH; -diphenhydrAMINE 50MG/ML VIAL (J1200) IV PRN; -methylPREDNISolone 125MG 2ML VIAL IV PRN
[2021-06-27 12:46] LABS: HEMATOCRIT 39.7 % (42.0-52.0); HEMOGLOBIN 12.5 g/dl (13.5-17.5); MEAN CORPUSCULAR HEMOGLOBIN 29.4 pg (27.0-33.0); MEAN CORPUSCULAR HGB CONC 31.5 g/dl (32.0-36.5); MEAN CORPUSCULAR VOLUME 93.4 fl (80.0-96.0); PLATELET COUNT, AUTOMATED 584 10^3/uL (150-450); RED BLOOD COUNT 4.25 10^6/uL (4.30-6.10); WHITE BLOOD COUNT 11.9 10^3/uL (4.0-10.0)
[2021-06-27 13:06] LABS: HEMOGLOBIN A1c 7.2 %
[2021-06-27 13:21] LABS: ALBUMIN 3.1 GM/DL (3.2-5.2); ALT/SGPT 104 U/L (12-78); BILIRUBIN,TOTAL 0.3 MG/DL (0.2-1.0); BLOOD UREA NITROGEN 17 MG/DL (7-18); CALCIUM LEVEL 8.9 MG/DL (8.8-10.2); CARBON DIOXIDE LEVEL 26 MEQ/L (21-32); CHLORIDE LEVEL 105 MEQ/L (98-107); CHOLESTEROL LEVEL 112 MG/DL (<200); CREATININE FOR GFR 0.88 MG/DL (0.70-1.30); FREE T4 1.27 NG/DL (0.76-1.46); GLOMERULAR FILTRATION RATE > 60.0 (>49); GLUCOSE, FASTING 188 MG/DL (70-100); HDL CHOLESTEROL 28 MG/DL (>40); LDL CHOLESTEROL 33 MG/DL (<100); NON-HDL-C 84 MG/DL; POTASSIUM SERUM 4.2 MEQ/L (3.5-5.1); SODIUM LEVEL 139 MEQ/L (136-145); TOTAL PROTEIN 7.2 GM/DL (6.4-8.2); TRIGLYCERIDES LEVEL 257 MG/DL (<150)
== END ==
LOC: M SFHCADAM 09:37
PROVIDERS: ATTEND Family Medicine
DX: I50.22 Chronic systolic (congestive) heart failure (principal); F32.9 Major depressive disorder, single episode, unspecified; E11.65 Type 2 diabetes mellitus with hyperglycemia; E78.5 Hyperlipidemia, unspecified

== ENCOUNTER → 2023-12-05 | Outpatient (REF) | payer BC ==
[~2023-12-05] MED LIST changes: +LOSA50TA28 PO; -LOSA50TA88 PO
== END ==
LOC: M SFHCADAM 15:34
PROVIDERS: ATTEND Family Medicine
DX: I25.10 Atherosclerotic heart disease of native coronary artery without angina pectoris (principal); E11.65 Type 2 diabetes mellitus with hyperglycemia; I50.22 Chronic systolic (congestive) heart failure

== ENCOUNTER → 2024-08-20 | Outpatient (REF) | payer BC | LOC: M SFHCADAM 16:29 | PROVIDERS: ATTEND Family Medicine | DX: E11.65 Type 2 diabetes mellitus with hyperglycemia (principal) ==